=== PATIENT | male | born 1955 | race Caucasian/White ===

== ENCOUNTER 2023-02-10 10:21 | Outpatient (CLI) | payer MEDICARE, SELFPAY | END 2023-02-10 10:22 | disposition home or self-care (01) | PROVIDERS: PCP Family Medicine; Visit Provider Family Medicine | DX: Z00.00 Encounter for general adult medical examination without abnormal findings (principal); I10 Essential (primary) hypertension; E11.9 Type 2 diabetes mellitus without complications; R53.83 Other fatigue; R73.9 Hyperglycemia, unspecified; Z12.5 Encounter for screening for malignant neoplasm of prostate; Z13.6 Encounter for screening for cardiovascular disorders | CPT/HCPCS: 80053; 80061; 84153; 84443 ==

== ENCOUNTER 2023-02-20 13:31 | Outpatient (CLI) | payer MEDICARE, SELFPAY ==
--- NOTE | 2023-02-20 14:00 | CRLHL7_ITS ---
For Patients: As a result of the Century Cures Act, medical imaging exams and procedure reports are released immediately into your electronic medical record. You may view this report before your referring provider. If you have questions, please contact your health care provider. INDICATION: Lung cancer screening. History of smoking. TECHNIQUE: Low-dose lung cancer screening non-contrast CT chest. Dose reduction techniques were used. COMPARISON: Chest x-ray 01/09/2023 FINDINGS: NODULES: Innumerable calcified granulomas in both lungs. LUNGS AND PLEURA: No focal consolidation. No pleural effusions. MEDIASTINUM: Small calcified hilar nodes CARDIOVASCULAR: Normal heart size. Normal caliber thoracic aorta. Scattered vascular calcifications. LIMITED UPPER ABDOMEN: Cholelithiasis. Remainder is unremarkable. MUSCULOSKELETAL: Mild thoracic spondylosis. IMPRESSION: 1. Innumerable calcified granulomas in both lungs. 2. Small calcified hilar nodes. [employer] GUIDELINES - SOLID NODULES: MULTIPLE LOW RISK - nodule less than 6 mm: No routine follow-up. - nodule 6-8 mm: CT at 3-6 months, then consider CT at 18-24 months. - nodule greater than 8 mm: CT at 3-6 months, then consider CT at 18-24 months. MULTIPLE HIGH RISK - nodule less than 6 mm: Optional CT at 12 months. - nodule 6-8 mm: CT at 3-6 months, then at 18-24 months. - nodule greater than 8 mm: CT at 3-6 months, then at 18-24 months. Please note that all CT scans at this facility use dose modulation, iterative reconstruction, and/or weight-based dosing when appropriate to reduce radiation dose to as low as reasonably achievable. Dictated by Brian Rodriguez MD @ 02/24/2023 2:36:10 PM (Electronically Signed)
--- NOTE | 2023-02-20 15:00 | CRLHL7_ITS ---
For Patients: As a result of the Century Cures Act, medical imaging exams and procedure reports are released immediately into your electronic medical record. You may view this report before your referring provider. If you have questions, please contact your health care provider. INDICATION: elevated LFTs COMPARISON: none TECHNIQUE: Real time underwood scale imaging and color Doppler analysis was performed of the right upper quadrant. FINDINGS: The liver is prominent measuring 18.8 cm. The liver echotexture is diffusely echogenic. No intrahepatic mass. There is a normal appearance of the hepatic IVC and proximal abdominal aorta. There is no evidence of ascites. The gallbladder is of normal size and there are small stones within the gallbladder lumen measuring up to 3.6 millimeters. The gallbladder wall measures 2 mm in thickness. The common bile duct is of normal size and measures 5 mm in diameter at the level of the hieu hepatis. The pancreas appears normal. There is no evidence of a stone or hydronephrosis within the right kidney. The right kidney measures 13.0 cm in length. IMPRESSION: Diffuse hepatic steatosis. Cholelithiasis. Dictated by Massimo Little MD @ 02/21/2023 11:29:32 AM (Electronically Signed)
--- NOTE | 2023-02-20 16:00 | CRLHL7_ITS ---
For Patients: As a result of the Cures Act, medical imaging exams and procedure reports are released immediately into your electronic medical record. You may view this report before your referring provider. If you have questions, please contact your health care provider. Examination: US abdominal aorta Indication: Abdominal aortic aneurysm screening. Technique: Boyer scale and color Doppler images of the aorta and common iliac arteries are obtained. Comparison: None Findings: Proximal aorta: 2.2 x 2.2 cm Mid aorta: 2.1 x 2.4 cm Distal aorta: 2.1 x 2.4 cm Right common iliac artery: 1.4 x 1.8 cm Left common iliac artery: 1.3 x 1.6 cm Impression: No abdominal aortic aneurysm. Dictated by Massimo Little MD @ 02/21/2023 11:32:31 AM (Electronically Signed)
== END 2023-02-20 13:32 | disposition home or self-care (01) ==
LOC: CT 13:33
PROVIDERS: PCP Family Medicine; Visit Provider Family Medicine
DX: R79.89 Other specified abnormal findings of blood chemistry (principal); K76.0 Fatty (change of) liver, not elsewhere classified; K80.20 Calculus of gallbladder without cholecystitis without obstruction; Z72.0 Tobacco use; Z87.891 Personal history of nicotine dependence
CPT/HCPCS: 71271; 76705; 76706

== ENCOUNTER 2023-02-27 09:12 | Outpatient (CLI) | payer MEDICARE, SELFPAY | END 2023-02-27 09:13 | disposition home or self-care (01) | LOC: OP CLINIC 09:13 | PROVIDERS: PCP Family Medicine; Visit Provider Internal Medicine | DX: Z53.09 Procedure and treatment not carried out because of other contraindication (principal); I48.20 Chronic atrial fibrillation, unspecified ==

== ENCOUNTER 2023-02-27 10:18 | Emergency (ER) | payer MEDICARE, SELFPAY ==
[2023-02-27] VITALS (25 sets, daily range): BP systolic 108–153; BP diastolic 75–118; PULSE 74–137; RESP 22; TEMP 36.6; O2SAT 95–98
--- NOTE | 2023-02-27 10:37 | CRLHL7_ITS ---
For Patients: As a result of the Century Cures Act, medical imaging exams and procedure reports are released immediately into your electronic medical record. You may view this report before your referring provider. If you have questions, please contact your health care provider. Indication: Atrial fibrillation Technique: Chest 2 views Comparison: Chest x-ray 01/09/2023 Findings/Impression: Cardiovascular and mediastinum: Normal heart size with mildly prominent aortic shadow, similar prior proved Lungs and pleural spaces: No pleural effusion or pneumothorax. Innumerable calcified granulomata, similar to prior. No acute consolidation. Bones and soft tissues: Mild ankylosis thoracic spine. Dictated by Jordan Alex MD @ 02/27/2023 11:04:18 AM (Electronically Signed)
--- NOTE | 2023-02-27 10:40 | ED_ITS ---
HPI - General Adult General Date Seen: 02/27/23 Chief complaint: Arrhythmia/Palpitations Stated complaint: Afib Time Seen by Provider: 02/27/23 10:37 History of Present Illness HPI narrative: Pleasant 67-year-old gentleman presents to the ER today with his . They are sent over from the outpatient colonoscopy department. He had presented to the colonoscopy is department for a routine screening colonoscopy. He had completed his prep unremarkably overnight last night and came in without any unusual symptoms this morning. When they were getting him a cup to the monitors they noted that he had a rapid irregular heart rate. He has atrial fibrillation with RVR. The patient has no symptoms from this. No palpitations. No dizziness. No chest pain. No shortness of breath. No syncope. He does know when it started. He has never had atrial fibrillation or any cardiac arrhythmia before. He has no history of cardiovascular disease or stents or strokes or peripheral artery disease. He does have a past medical history including hypertension (on lisinopril) obesity, and borderline diabetes) on metformin started a couple of weeks ago). He is a smoker but only smokes occasionally. He drinks alcohol rarely, perhaps a couple times per month. No alcohol consumption lately. No drugs or alcohol. He does snore loudly but has never had a sleep apnea test. No diagnosis of COSME. No CPAP. He has not had any other recent symptoms. No personal or family history of AFib. Chads 2 Vasc score equals 2 which puts him at a 2.2 % annual risk for stroke. Related Data Previous Rx's Medication Instructions Recorded blood sugar diagnostic (Blood #100 ea 02/10/23 Glucose Test strips) blood-glucose meter (Advanced #1 ea 02/10/23 Glucose Meter) ketoconazole 2 % shampoo 1 applic topical 2XW #120 mL 02/10/23 lancets 28 gauge (Comfort EZ #100 ea 02/10/23 Lancets) lisinopril 10 1 tab PO QDAY #30 tabs 02/10/23 mg-hydrochlorothiazide 12.5 mg tablet metformin 500 mg tablet,extended 500 mg PO QDAY #90 tabs 02/10/23 release 24hr triamcinolone acetonide 0.1 % 1 applic topical BID #80 grams 02/10/23 topical cream peg 3350-electrolytes 236 240 ml PO ONCE #4,000 mL 02/16/23 gram-22.74 gram-6.74 gram-5.86 gram solution (Golytely) peg 3350-electrolytes 236 240 ml PO ONCE #4,000 mL 02/22/23 gram-22.74 gram-6.74 gram-5.86 gram solution (Golytely) apixaban 5 mg tablet (Eliquis) 5 mg PO BID #60 tabs 02/27/23 diltiazem HCl 240 mg 240 mg PO DAILY #30 caps 02/27/23 capsule,extended release 24 hr (Cardizem CD) Allergies Allergy/AdvReac Type Severity Reaction Status Date / Time No Known Drug Allergies Allergy Verified 02/10/23 10:04 [facility] Medical History (Updated 02/27/23 @ 13:31 by Derrek Hu MD) Tobacco abuse ?Z72.0 - Tobacco use (ICD-10) Seborrheic dermatitis, unspecified ?L21.9 - Seborrheic dermatitis, unspecified (ICD-10) Diabetes mellitus ?E11.9 - Type 2 diabetes mellitus without complications (ICD-10) Knee pain, bilateral ?M25.561 - Pain in right knee (ICD-10) ?M25.562 - Pain in left knee (ICD-10) HTN, goal below 140/90 ?I10 - Essential (primary) hypertension (ICD-10) Preventative health care ?Z00.00 - Encounter for general adult medical examination without abnormal findings (ICD-10) Dyspnea or other respiratory complaints Surgical History (Updated 02/15/23 @ 15:06 by Sonia Gomez) Injury of quadriceps tendon (07/06/17) ?S76.109A - Unspecified injury of unspecified quadriceps muscle, fascia and tendon, initial encounter (ICD-10) S/P right knee arthroscopy (01/05/18) ?Z98.890 - Other specified postprocedural states (ICD-10) Social History Smoking Status: Light tobacco smoker What tobacco products do you use: cigarettes Do you use any of these nicotine containing products: None Second hand tobacco smoke exposure: No How often do you have a drink containing alcohol: 2-4 times a month How many standard drinks containing alcohol do you have on a typical day: 1 or 2 How often do you have six or more drinks on one occasion: Never AUDIT-C Alcohol total score: 2 Non-prescribed substance use: denies use Little interest or pleasure in doing things: not at all Feeling down, depressed, or hopeless: not at all service: No Exam Narrative: Exam Narrative: Constitutional: Appears well-developed and well-nourished. Alert. Conversant. Non toxic. HENT: Head: Atraumatic. Nose: Nose normal. Mouth/Throat: Oral mucosa is clear and moist. no trismus. Pharynx normal. Tonsil s symmetric. No tonsillar enlargement, erythema, or exudate. Eyes: Conjunctivae normal. EOM normal. Pupils equal, round, and reactive to light. No scleral icterus. Neck: Normal range of motion. Neck supple. No tracheal deviation present. Cardiovascular: Tachycardic, irregularly irregular rhythm. No gallop. No friction rub. No murmur heard. Symmetric radial artery pulses . No JVD. Pulmonary/Chest: Effort normal. No stridor. No respiratory distress. No wheezes. No rales. No rhonchi . No tenderness. Abdominal: Soft. Bowel sounds normal. No distension. No mass. No tenderness. No rebound. No guarding. Musculoskeletal: RUE: Normal range of motion. No tenderness. No deformity LUE: Normal range of motion. No tenderness. No deformity RLE: Normal range of motion. No edema. No tenderness. No deformity LLE: Normal range of motion. No edema. No tenderness. No deformity Neurological: Alert and oriented to person, place, and time. Normal strength. CN II-VII intact. No sensory deficit. GCS eye subscore is 4. GCS verbal subscore is 5. GCS motor subscore is 6. Normal coordination Skin: Skin is warm and dry. No rash noted. No pallor. Normal capillary refill. Psychiatric: Normal mood. Normal affect. Const: Vital Signs, click to edit/add: Vital Signs - 24 hr 02/27/23 10:24 02/27/23 10:42 02/27/23 11:06 Temperature 97.8 F Pulse Rate 108 H 90 Pulse Rate [Apical ] 137 H Respiratory Rate 22 Blood Pressure Blood Pressure [Le ft Upper Arm] 110/92 H Pulse Oximetry 95 96 95 Oxygen Delivery Me thod Room Air 02/27/23 11:07 02/27/23 11:15 02/27/23 11:30 Temperature Pulse Rate 93 92 82 Pulse Rate [Apical ] Respiratory Rate Blood Pressure 135/95 H Blood Pressure [Le ft Upper Arm] Pulse Oximetry 97 96 97 Oxygen Delivery Me thod 02/27/23 11:32 02/27/23 11:45 02/27/23 12:00 Temperature Pulse Rate 80 86 86 Pulse Rate [Apical ] Respiratory Rate Blood Pressure 120/93 H Blood Pressure [Le ft Upper Arm] Pulse Oximetry 95 96 98 Oxygen Delivery Me thod 02/27/23 12:02 02/27/23 12:15 02/27/23 12:30 Temperature Pulse Rate 92 77 84 Pulse Rate [Apical ] Respiratory Rate Blood Pressure 148/114 H Blood Pressure [Le ft Upper Arm] Pulse Oximetry 97 97 97 Oxygen Delivery Me thod 02/27/23 12:32 02/27/23 12:45 02/27/23 13:00 Temperature Pulse Rate 86 76 93 Pulse Rate [Apical ] Respiratory Rate Blood Pressure 108/75 Blood Pressure [Le ft Upper Arm] Pulse Oximetry 96 97 97 Oxygen Delivery Me thod 02/27/23 13:02 02/27/23 13:15 02/27/23 13:30 Temperature Pulse Rate 80 87 84 Pulse Rate [Apical ] Respiratory Rate Blood Pressure 129/100 H Blood Pressure [Le ft Upper Arm] Pulse Oximetry 95 97 97 Oxygen Delivery Me thod 02/27/23 13:32 02/27/23 13:45 02/27/23 14:00 Temperature Pulse Rate 74 86 89 Pulse Rate [Apical ] Respiratory Rate Blood Pressure 129/100 H Blood Pressure [Le ft Upper Arm] Pulse Oximetry 96 97 95 Oxygen Delivery Me thod 02/27/23 14:03 02/27/23 14:15 02/27/23 14:30 Temperature Pulse Rate 90 82 92 Pulse Rate [Apical ] Respiratory Rate Blood Pressure 145/118 H Blood Pressure [Le ft Upper Arm] Pulse Oximetry 95 96 95 Oxygen Delivery Me thod 02/27/23 14:32 Temperature Pulse Rate 95 Pulse Rate [Apical ] Respiratory Rate Blood Pressure 153/110 H Blood Pressure [Le ft Upper Arm] Pulse Oximetry 95 Oxygen Delivery Me thod Course Vital Signs Vital signs: Initial Vital Signs Temperature 97.8 F 02/27/23 10:24 Temperature Source Temporal Artery Scan 02/27/23 10:24 Pulse Rate 137 H 02/27/23 10:24 Pulse Rhythm Irregular 02/27/23 10:24 Respiratory Rate 22 02/27/23 10:24 Blood Pressure 110/92 H 02/27/23 10:24 Blood Pressure Mean 98 02/27/23 10:24 Blood Pressure Position Supine 02/27/23 10:24 Pulse Oximetry 95 02/27/23 10:24 Oxygen Delivery Method Room Air 02/27/23 10:24 Vital Signs Temperature 97.8 F 02/27/23 10:24 Pulse Rate 137 H 02/27/23 10:24 Respiratory Rate 22 02/27/23 10:24 Blood Pressure 110/92 H 02/27/23 10:24 Pulse Oximetry 95 02/27/23 10:24 Oxygen Delivery Method Room Air 02/27/23 10:24 Temperature 97.8 F 02/27/23 10:24 Pulse Rate 95 02/27/23 14:32 Respiratory Rate 22 02/27/23 10:24 Blood Pressure 153/110 H 02/27/23 14:32 Pulse Oximetry 95 02/27/23 14:32 Oxygen Delivery Method Room Air 02/27/23 10:24 Medications Administered Medications: Discontinued Medications Generic Name Dose Route Start Last Admin Trade Name Freq PRN Reason Stop Dose Admin Apixaban 5 mg 02/27/23 12:27 02/27/23 13:00 Apixaban 5 Mg Tablet PO 02/27/23 12:28 5 mg ONCE ONE Administration Diltiazem HCl 10 mg 02/27/23 10:37 02/27/23 11:07 Diltiazem 5 Mg/Ml Inj IVP 02/27/23 10:38 10 mg ONCE ONE Administration Diltiazem HCl 10 mg 02/27/23 11:54 02/27/23 12:24 Diltiazem 5 Mg/Ml Inj IVP 02/27/23 11:55 10 mg ONCE ONE Administration Diltiazem HCl 120 mg 02/27/23 11:55 02/27/23 12:05 Diltiazem 120 Mg Cap.Er.24h PO 02/27/23 11:56 120 mg ONCE ONE Administration Diltiazem HCl 120 mg 02/27/23 13:23 02/27/23 13:37 Diltiazem 120 Mg Cap.Er.24h PO 02/27/23 13:24 120 mg ONCE ONE Administration Sodium Chloride 500 mls @ 500 mls/hr 02/27/23 10:37 02/27/23 12:00 0.9 % Sodium Chloride 500 Ml IV 02/27/23 11:36 Infused .Q1H ONE Infusion Medical Decision Making MDM Narrative Medical decision making narrative: Very pleasant 67-year-old gentleman who was referred to the ER today from the outpatient colonoscopy suite for atrial fibrillation with RVR. He has no history of AFib and is not having any symptoms of AFib but was found to be in AFib with RVR when he presented this morning per his routine outpatient colonoscopy. AFib with RVR confirmed on ER 12 lead EKG and electronic device monitor. Fortunately patient's blood pressure is stable and he is asymptomatic. It knee absence of symptoms, impossible to know true time of onset. Therefore sedation and cardioversion here in the ER is contraindicated due to risk up stroke. We opted for rate control. We administered IV fluids and IV diltiazem. After 1st 10 mg bolus he had some partial improvement. A 2nd bolus of 10 mg diltiazem and 120 mg Cardizem CD were also administered for rate control. Cause of the AFib is unclear. No recent drug or alcohol use. No ?holiday heart? syndrome. Electrolytes are normal. No evidence for ACS. Thyroid and TSH normal. Patient does have a history of snoring I wonder if he may have sleep apnea as a cause. In terms of stroke prophylaxis his CHADS2 Vasc score is 2 which puts him at a 2.2 % annual risk for stroke. Patient has had no high risk features for bleeding complications and no history of GI bleed or ulcer. Heart rate improved after 10 mg of IV diltiazem. It was not ranging in the 100- 120 range. He received 100 mg of Cardizem CD an additional 10 mg IV. Heart rate improved further with ranging 80 up to 120. Additional Cardizem CD 1 120 mg oral administered. Heart rate maintaining in the 80s to 115 range. He still remains asymptomatic Discussed with Cardiology, Dr. Collins. He agrees with the plan to initiate Eliquis for stroke prophylaxis. He would recommend Cardizem CD 2 140 mg daily for rate control. Outpatient follow-up with primary care to arrange echocardiogram, Holter monitor for outpatient, and then outpatient cardiology visit. I discussed atrial fibrillation with the patient and his in detail. Discussed the rationale for his medications and indications for each. Discussed the potential risks of AFib with RVR and potential complications that could occur at home. Precautions for return to the ER reviewed. Questions answered in detail for the patient, his , and his son. Lab Data Labs: Lab Results 02/27/23 Range/Units 11:15 WBC 6.48 (4.50-11.00) K/uL RBC 5.36 (4.30-5.90) m/uL Hgb 16.3 (13.5-17.5) gm/dL Hct 47.6 (37.0-53.0) % MCV 89 (80-100) fL MCH 30 (26-34) pg MCHC 34 (32-36) gm/dL RDW Coeff of Luis 12.0 (11.5-15.5) % Plt Count 184 (140-440) K/uL Neut % (Auto) 64.0 (42.0-72.0) % Lymph % (Auto) 22.4 (20-44) % Edwards % (Auto) 10.8 (0.0-11.0) % Eos % (Auto) 1.7 (0.0-7.0) % Baso % (Auto) 0.8 (0.0-3.0) % Neut # (Auto) 4.15 (1.7-7.0) K/uL Lymph # (Auto) 1.45 (0.90-2.90) K/uL Edwards # (Auto) 0.70 (0.00-0.90) K/UL Eos # (Auto) 0.11 (0.00-0.50) K/uL Baso # (Auto) 0.05 (0.00-0.30) K/uL Abs Immat Gran (auto) 0.02 (0.00-0.30) K/uL Imm/Tot Granulo (auto) 0.3 % INR 1.05 (0.91-1.10) Sodium 139 (135-149) mmol/L Potassium 3.9 (3.6-5.1) mmol/L Chloride 102 (96-114) mmol/L Carbon Dioxide 27 (20-32) mmol/L Anion Gap 10 (7-15) mEq/L BUN 17 (7-30) mg/dL Creatinine 1.0 (0.5-1.5) mg/dL Estimated GFR 83 ml/min Glucose 131 H (60-115) mg/dL Calcium 9.4 (8.4-10.6) mg/dL Troponin I < 0.01 L (0.01-0.04) ng/mL TSH 1.120 (0.270-4.200) uIU/mL SARS-CoV-2 (PCR) Negative SARS-CoV-2 (Negative) Influenza Type A (PCR) Negative PCR FLU A (Negative) Influenza Type B (PCR) Negative PCR FLU B (Negative) RSV (PCR) Negative PCR RSV (Negative) Imaging Data Chest x-ray: Attestation: I have reviewed the pertinent imaging results. Radiologist's impression: Findings/Impression: Cardiovascular and mediastinum: Normal heart size with mildly prominent aortic shadow, similar prior proved Lungs and pleural spaces: No pleural effusion or pneumothorax. Innumerable calcified granulomata, similar to prior. No acute consolidation. ECG Data Attestation: I personally reviewed and interpreted this ECG as follows: Interpretation: Atrial fibrillation with rapid ventricular response. Rate 137. W[place] Na QRS axis normal axis ST segment/T wave: No ST segment elevation or depression. Nonspecific changes in the lateral leads. QTc: 380 Discharge Plan Discharge Clinical Impression: Atrial fibrillation with rapid ventricular response Patient Disposition: Home, Self-Care Condition: Stable Instructions: A-fib (Atrial Fibrillation) (ED), Blood Thinners (ED) Additional Instructions: As we discussed, please come back to the ER right away if you have any spells of dizziness, palpitations, lightheadedness, chest pain, or trouble breathing. Come back to the ER right away if you have a heart rate elevated above 110 for more than he 5 minutes. Please follow-up with your regular doctor within the next 2-4 days for a recheck. Your doctor can help you arrange and at home electronic device monitor that he will wear for several days at home, and outpatient cardiac ultrasound (called an echocardiogram). He will also need to follow-up with the instructor physical. You can call [facility] at [phone] to schedule an ER follow-up appointment for your atrial fibrillation. To help keep your heart rate under control please start your new medication- Cardizem CD 2 140 mg daily To minimize your risk for strokes, please start the new medication-Eliquis 5 mg by mouth twice daily. Prescriptions: New diltiazem HCl [Cardizem CD] 240 mg capsule,extended release 24hr 240 mg PO DAILY Qty: 30 2RF Eliquis 5 mg tablet 5 mg PO BID Qty: 60 2RF No Action metformin 500 mg tablet extended release 24hr 500 mg PO QDAY Qty: 90 1RF (DME) blood-glucose meter [Advanced Glucose Meter] [facility] See Rx Instructions .Route Qty: 1 0RF Rx Instructions: As directed (DME) Blood Glucose Test Strip See Rx Instructions .ROUTE .MEDSUPPLY Qty: 100 2RF Rx Instructions: bid (DME) lancets [Comfort EZ Lancets] [facility] See Rx Instructions .Route Qty: 100 12RF Rx Instructions: bid lisinopril-hydrochlorothiazide 10-12.5 mg tablet 1 tab PO QDAY Qty: 30 1RF triamcinolone acetonide 0.1 % cream 1 applic topical BID Qty: 80 1RF ketoconazole 2 % shampoo 1 applic topical 2XW Qty: 120 1RF peg 3350-electrolytes [Golytely] 236-22.74-6.74 -5.86 gram recon soln 240 ml PO ONCE Qty: 4000 0RF Rx Instructions: 4pm day prior to procedure. Drink 8oz glass every 15 minutes until 1/2 of solution is gone. 6 hours prior to procedure drink 8 oz glass every 15 minutes until remaining solution gone. peg 3350-electrolytes [Golytely] 236-22.74-6.74 -5.86 gram recon soln 240 ml PO ONCE Qty: 4000 0RF Rx Instructions: 4pm day prior to procedure. Drink 8oz glass every 15 minutes until 1/2 of solution is gone. 6 hours prior to your procedure time drink 8oz glass every 15 minutes until remaining solution is gone. Follow Up/Referrals: Earnest Wyatt MD [Primary Care Provider] - [facility]
[2023-02-27] MEDS: 0.9 % SODIUM CHLORIDE 500 ML 500 ML IV (11:00)
[2023-02-27] MEDS: dilTIAZem 5 MG/ML inj 10 MG IVP ×2 (11:07→12:24)
[2023-02-27 11:26] LABS: Basophils Absolute Auto 0.05 K/uL (0.00-0.30); Basophils Percent Auto 0.8 % (0.0-3.0); Eosinophils Absolute Auto 0.11 K/uL (0.00-0.50); Eosinophils Percent Auto 1.7 % (0.0-7.0); Hematocrit 47.6 % (37.0-53.0); Hemoglobin* 16.3 gm/dL (13.5-17.5); Immature Granulocytes Abs Auto 0.02 K/uL (0.00-0.30); Immature Granulocytes Pct Auto 0.3 %; Lymphocytes Absolute Auto 1.45 K/uL (0.90-2.90); Lymphocytes Percent Auto 22.4 % (20-44); Mean Corpuscular HGB Conc 34 gm/dL (32-36); Mean Corpuscular Hemoglobin 30 pg (26-34); Mean Corpuscular Volume 89 fL (80-100); Monocytes Percent Auto 10.8 % (0.0-11.0); Neutrophils Absolute Auto 4.15 K/uL (1.7-7.0); Platelet Count* 184 K/uL (140-440); Red Blood Count 5.36 m/uL (4.30-5.90); Slide Review Reflex No; White Blood Count* 6.48 K/uL (4.50-11.00)
[2023-02-27 11:38] LABS: Chloride* 102 mmol/L (96-114); Sodium* 139 mmol/L (135-149)
[2023-02-27 11:39] LABS: Potassium* 3.9 mmol/L (3.6-5.1)
[2023-02-27 11:41] LABS: Anion Gap 10 mEq/L (7-15); Carbon Dioxide* 27 mmol/L (20-32); Estimated Glomerular Filt Rate 83 ml/min
[2023-02-27 11:42] LABS: Blood Urea Nitrogen* 17 mg/dL (7-30); Calcium* 9.4 mg/dL (8.4-10.6); Glucose* 131 mg/dL (60-115)
[2023-02-27 11:46] LABS: INR 1.05 (0.91-1.10); Prothrombin Time 14.3 Seconds
[2023-02-27 11:56] LABS: Troponin I* < 0.01 ng/mL (0.01-0.04)
[2023-02-27] MEDS: dilTIAZem 120 MG CAP.ER.24H PO ×2 (12:05→13:37)
[2023-02-27 12:08] LABS: PCR FLU A Negative PCR FLU A (Negative); PCR FLU B Negative PCR FLU B (Negative); PCR RSV Negative PCR RSV (Negative)
[2023-02-27 12:16] LABS: SARS PCR* Negative SARS-CoV-2 (Negative)
[2023-02-27] MEDS: APIXABAN 5 MG TABLET PO (13:00)
--- NOTE | 2023-02-27 14:19 | ED.NURSE ---
dr pérez aware of hr 94-124. does want to go home.
== END 2023-02-27 14:52 | disposition home or self-care (01) ==
PROVIDERS: Emergency Provider Emergency Medicine; PCP Family Medicine
DX: I48.20 Chronic atrial fibrillation, unspecified (principal)
CPT/HCPCS: 36415; 71046; 80048; 84443; 84484; 85025; 85610; 87631; 93005; 99284; A9270; J7120

== ENCOUNTER 2023-04-14 07:31 | Outpatient (CLI) | payer OTHER, SELFPAY ==
[2023-04-14] MEDS: PERFLUTREN LIPID MICROSPHERES 2 ML VIAL IV (09:53)
== END 2023-04-14 07:32 | disposition home or self-care (01) ==
LOC: RAD 07:31
PROVIDERS: PCP Family Medicine; Visit Provider Family Medicine
DX: I48.91 Unspecified atrial fibrillation (principal); I51.7 Cardiomegaly; I34.0 Nonrheumatic mitral (valve) insufficiency; I10 Essential (primary) hypertension
CPT/HCPCS: 93306; Q9957

== ENCOUNTER 2023-04-24 19:09 | Outpatient (CLI) | payer OTHER, SELFPAY ==
--- OUTSIDE RECORDS SUMMARY | 2023-04-24 19:15 | XMS_ITS | Clinical Summary ---
Author Name Unknown Organization [facility] Address [address] [address] Care Team Providers Care Electrician Ship Name Role Phone Found, No Pcp MD Primary Care Provider Unavailab le Source Comments You are receiving this document as you are listed as the primary care provider,follow-up provider, or the patient has been referred to you for consultation.This is in compliance with the Medicare andMedicaid EHR Incentive Program,which states Providers who transition their patient to another setting of careor provider of care or refers their patient to another provider of care shouldprovide summary care record for each transition of care or referral. [facility] Allergies No known active allergies Medications No known medications Active Problems No known active problems Social History Tobacco Use Types Packs/Day Years Used Date Smoking Tobacco: Every Day Alcohol Use Standard Drinks/Week Comments Yes 0 (1 standard drink = 0.6 oz pur e alcohol) Sex and Gender Information Value Date Recorded Sex Assigned at Not on file Gender Identity Not on file Sexual Orientation Not on file Last Filed Vital Signs Vital Sign Reading Time Taken Comments Blood Pressure 162/102 05/27/2014 2:05 PM CARDIOLOGY ASSOCIATE Pulse - - Temperature 36.8 ??C (98.2 ??F) 02/04/2016 8:32 AM CD T Respiratory Rate - - Oxygen Saturation - - Inhaled Oxygen Concentration - - Weight 133.4 kg (294 lb) 05/27/2014 2:05 PM CARDIOLOGY ASSOCIATE Height 180.3 cm (5' 11) 05/27/2014 2:05 PM CARDIOLOGY ASSOCIATE Body Mass Index 41 05/27/2014 2:05 PM CARDIOLOGY ASSOCIATE Plan of Treatment Health Maintenance Due Date Last Done Comments Colon Cancer Screening Plan Due 1955 Hep C Screening (Preventive Services) 1955 PSA Screening Discussion 1955 COVID-19 Vaccine (#1) 05/08/1956 Adult Preventive Visit 1974 DTaP/Tdap/Td (1 - Tdap) 11/06/1975 Cholesterol 11/06/1991 Zoster/Shingles (1 of 2) 2006 Pneumococcal 65+ Yrs (1 - PCV) 2021 Influenza (#1) 2022 HepA Aged Out No longer eligi ble based on patient's age to complete this topic HepB Aged Out No longer eligi ble based on patient's age to complete this topic Hib Aged Out No longer eligi ble based on patient's age to complete this topic IPV (Polio) Aged Out No longer eligi ble based on patient's age to complete this topic MCV4 Aged Out No longer eligi ble based on patient's age to complete this topic Care Teams Electrician Ship Relationship Specialty Start Date End Date Found, No Pcp, [id number] [place] [address] PCP - General 03/01/18
--- NOTE | 2023-05-02 09:12 | W.PM.SLEEP ---
Sleep Study Details Details Interpreting Provider: Yulisa Date of Sleep Study: 04/24/23 Sleep Study Details: STUDY TYPE:? Home unattended ? BMI:? 39.3 ORDERING PROVIDER:? Edmundo INDICATION:? Concerns about sleep apnea ? SLEEP SUMMARY:? 611.3 minutes RESPIRATORY SUMMARY:? AHI 24.6 Low oxygen 75 2.1% of study oxygen less than 90% Snoring 25.7% PERIODIC LIMB MOVEMENTS OF SLEEP:? Not recorded during home study CARDIAC:? Range 52-106, mean 83.3 IMPRESSION:? Moderate obstructive sleep apnea treatment options include CPAP, dental appliance, weight loss and/or airway expansion surgery. Would favor CPAP. RECOMMENDATION: Home unattended
== END 2023-04-24 19:10 | disposition home or self-care (01) ==
PROVIDERS: PCP Family Medicine; Visit Provider Family Medicine
DX: G47.33 Obstructive sleep apnea (adult) (pediatric) (principal)
CPT/HCPCS: 95806

== ENCOUNTER 2023-05-09 07:58 | Outpatient (CLI) | payer OTHER, SELFPAY ==
--- OUTSIDE RECORDS SUMMARY | 2023-05-10 05:37 | XMS_ITS | Clinical Summary ---
Author Name Unknown Organization [facility] Address [place], [place] [address] Care Team Providers Care Director Of Instrumental Music Name Role Phone Earnest Wyatt MD Primary Care Provider [phone] Allergies No known active allergies Medications Medication Sig Dispensed Refills Start Date End Date Status albuterol HFA (PRO-AIR; VENTOLIN; PROVENTIL) 90 mcg/actuation inhaler Inhale 2 Puffs by mouth every 4 hours if needed. 0 01/09/2023 Active Eliquis 5 mg tablet Take 5 mg by mouth two times daily. 0 02/27/2023 Active dilTIAZem CD (CARDIZEM CD) 240 mg extended release 24 hr capsule Take 240 mg by mouth once daily. 0 04/03/2023 Active lisinopril-hydroch lorothiazide (10-12.5 mg) tablet (PRINZIDE; ZESTORETIC) Take 1 Tablet by mouth once daily. 0 03/17/2023 Active metFORMIN (GLUCOPHAGE XR) 500 mg Extended-Release tablet Take 500 mg by mouth once daily with evening meal. 0 02/10/2023 Active rosuvastatin (CRESTOR) 10 mg tablet Take 10 mg by mouth once daily with evening meal. 0 03/09/2023 Active Ozempic 0.25 mg or 0.5 mg (2 mg/3 mL) pen INJECT 0.25 MG (0.368 ML) SUBCUTANEOUSLY EVERY WEEK FOR 4 WEEKS* 0 04/13/2023 Active Accu-Chek Guide test strips strip USE TO TEST TWICE DAILY* 0 02/10/2023 Active Accu-Chek Guide Glucose Meter Use as directed.* 0 02/10/2023 Acti ve Accu-Chek Softclix Lancets USE DIRECTED TO TEST TWICE DAILY* 0 02/10/2023 Active Encounters Date Type Department Care Team Description 04/27/2023 9:01 AM COMMERCIAL FISHING VESSEL OPERATOR Anesthesia Event [facility] [address] [place] [address] Amarjit Edmondson MD 04/27/2023 7:07 AM COMMERCIAL FISHING VESSEL OPERATOR - 04/27/2023 10:15 AM COMMERCIAL FISHING VESSEL OPERATOR Hospital Encounter [facility] [address] [place] [address] Rocael Baker MD Discharge Disposition: Home Self Care 04/27/2023 Travel 04/25/[address] [phone] Rocael Baker MD prior auth for cardioversion 04/21/2023 9:30 AM COMMERCIAL FISHING VESSEL OPERATOR Office Visit [address] [address] Rocael Baker MD 04/21/[address] [address] Rocael Baker MD orders 04/14/2023 8:00 AM COMMERCIAL FISHING VESSEL OPERATOR Ancillary Procedure [facility] [place] [place] [address] [place] [address] 04/14/2023 Travel from Last 3 Months Social History Tobacco Use Types Packs/Day Years Used Date Smoking Tobacco: Some Days Cigarettes Smokeless Tobacco: Never Tobacco Cessation:Ready to Q uit: Not Asked; Counseling Given: Not Answered Comments:Cigar during golf Alcohol Use Standard Drinks/Week Comments Not Currently 0 (1 standard drink = 0.6 oz pur e alcohol) Social Connections Answer Date Recorded Frequency of Communication with Friends and Fami ly Not on file 04/21/2023 Sex and Gender Information Value Date Recorded Sex Assigned at Not on file Gender Identity Not on file Sexual Orientation Not on file Obstetrics History Last Filed Vital Signs Vital Sign Reading Time Taken Comments Blood Pressure 112/64 04/27/2023 10:15 AM COMMERCIAL FISHING VESSEL OPERATOR Pulse 80 04/27/2023 10:15 AM COMMERCIAL FISHING VESSEL OPERATOR Temperature 36.7 ??C (98 ??F) 04/27/2023 10:15 AM COMMERCIAL FISHING VESSEL OPERATOR Respiratory Rate 18 04/27/2023 10:15 AM COMMERCIAL FISHING VESSEL OPERATOR Oxygen Saturation 98% 04/27/2023 10:15 AM COMMERCIAL FISHING VESSEL OPERATOR Inhaled Oxygen Concentration - - Weight 127.5 kg (281 lb) 04/27/2023 7:44 AM COMMERCIAL FISHING VESSEL OPERATOR Height 180.3 cm (5' 11) 04/27/2023 7:44 AM COMMERCIAL FISHING VESSEL OPERATOR Body Mass Index 39.19 04/27/2023 7:44 AM COMMERCIAL FISHING VESSEL OPERATOR Plan of Treatment Health Maintenance Due Date Last Done Comments Pneumococcal series for age 65+ (1 of 2 - PCV) 1962 Tdap 11/06/1967 Depression screening for age 12+ 1968 BMI (ht and wt on same day) for age 18+ 1974 Hepatitis C screening for age 18-79 1974 Tetanus booster 1976 Colonoscopy through age 75 2001 Lipids for age 45-75 2001 Zoster (shingles) series for age 50+ (1 of 2) 2006 AAA screening age 65-74 2021 Medicare Wellness for age 65+ 2021 COVID-19 vaccine series (2022- season) 2022 04/20/2021, 07/17/2020, 06/19/2020 Influenza for age 65+ 12/02/2022 Procedures Procedure Name Priority Date/Time Associated Diagnosis Comments EP CARDIOVERSION Routine 04/27/2023 9:04 AM COMMERCIAL FISHING VESSEL OPERATOR EKG 12 LEAD Post Op 04/27/2023 8:55 AM COMMERCIAL FISHING VESSEL OPERATOR POTASSIUM,ISTAT Timed 04/27/2023 7:39 AM COMMERCIAL FISHING VESSEL OPERATOR EKG 12 LEAD Preop 04/27/2023 7:26 AM COMMERCIAL FISHING VESSEL OPERATOR SCAN-CARDIAC STRIP 04/27/2023 12 :00 AM COMMERCIAL FISHING VESSEL OPERATOR ECHO TTE COMPLETE W CONTRAST Routine 04/14/2023 9:17 AM COMMERCIAL FISHING VESSEL OPERATOR Atrial fibrillation, unspecified type (HC) from Last 3 Months Results * EP CARDIOVERSION (04/27/2023 9:04 AM COMMERCIAL FISHING VESSEL OPERATOR) Anatomical Region Laterality Modality X-Ray Angiograph y Narrative 04/27/2023 9:[address] Bernal PA ? 04/27/2023 ??9:04 AM [facility] Cardiac Electrophysiology Procedure Note DOS: 04/27/2023 Brief History: ??Saleem Thomas is a pleasant 67 y.o. year old with history of persistent atrial fibrillation who now presents to CVOP NPO since midnight for direct current cardioversion. ?? Eliquis 5 mg BID with no missed doses for at least 3 consecutive weeks. ?? Procedure Description: ??Time out was called. ??Brief general anesthesia by anesthesia service. ??Cardioversion patches were placed in an anterior/posterior position. ??One 200 joules synchronized shock delivered with successful conversion to sinus rhythm at 88 bpm. ?? Complications: ??No acute complications. ?? Plan: ?? Saleem Thomas is now recovering from sedation and would anticipate discharge home later today. Dr. Hermosillo was readily available to provide assistance and direction throughout the time services were performed ANSLEY Nichole [facility] Cardiac Electrophysiology Rocael Baker MD CV IMAGING * EKG (04/27/2023 8:55 AM COMMERCIAL FISHING VESSEL OPERATOR) Only the most recent of2 resultswithin the time period is included. Interpretation Sinus rhythm with 1st degree A-V block Otherwise normal ECG When compared with ECG of 27-APR-2023 07:26, Sinus rhythm has replaced Atrial fibrillation BEYOND NOW Ventricular Rate 88 BPM BEYOND NOW Atrial Rate 88 BPM BEYOND NOW P-R Interval 214 ms BEYOND NOW QRS Duration 92 ms BEYOND NOW QT 380 ms BEYOND NOW QTc 459 ms BEYOND NOW P [place] 27 degrees BEYOND NOW R [place] 19 degrees BEYOND NOW T [place] 31 degrees BEYOND NOW 04/27/2023 8:55 AM COMMERCIAL FISHING VESSEL OPERATOR 04/28/2023 8:16 AM COMMERCIAL FISHING VESSEL OPERATOR Narrative BEYOND NOW - 04/28/2023 8:16 AM COMMERCIAL FISHING VESSEL OPERATOR Test Indication: post Court PANCHAL EKG ORD BEYOND NOW [place], [place] * POTASSIUM,ISTAT (04/27/2023 7:39 AM COMMERCIAL FISHING VESSEL OPERATOR) POTASSIUM, POCT 3.9 3.5 - 5.0 mmol/L 05/01/2023 2:57 AM COMMERCIAL FISHING VESSEL OPERATOR [facility] Blood BLOOD SPECIMEN / Unknown 04/27/2023 7:39 AM COMMERCIAL FISHING VESSEL OPERATOR 05/01/2023 2:57 AM COMMERCIAL FISHING VESSEL OPERATOR Rocael Baker MD CHEMISTRY [facility] [address] [place] [address], * SCAN-CARDIAC STRIP (04/27/2023 12:00 AM COMMERCIAL FISHING VESSEL OPERATOR) Narrative 04/27/2023 12:00 AM COMMERCIAL FISHING VESSEL OPERATOR Ordered by an unspecified provider. Other Clinical Staff OTHER * ECHO TTE COMPLETE W CONTRAST (04/14/2023 9:17 AM COMMERCIAL FISHING VESSEL OPERATOR) AORTIC VALVE MEAN PG 3 mmHg PEAK TR VELOCITY 2.1 m/s LVEDD 5.0 cm EJECTION FRACTION 60 - 65% Anatomical Region Laterality Modality Ultrasound 04/14/2023 8:12 AM COMMERCIAL FISHING VESSEL OPERATOR Narrative 04/14/2023 11:28 AM COMMERCIAL FISHING VESSEL OPERATOR ECHOCARDIOGRAM SALEEM THOMAS ?Accession#: ?? [id number] : ?1955 67 years Study Date: ?? 04/14/2023 8:12:21 AM Gender: M ? BP: ? 130/83 mmHg Height: 180.00 cm ? BSA: ?2.44 m? ? ? Weight: 128.00 kg ? Tech: ? MTS ?Referring MD: EARNEST WYATT Site: ? [facility] Reading Location: MOBILE OP Patient Location: Outpatient. Procedure: Color Doppler, Spectral Doppler and 2D w/ Contrast. Indication for study: Atrial fibrillation, unspecified type (HC) Cardiac Rhythm: Irregular.Study quality: Technically limited. Imaging limitations: This study was subject to imaging limitations due to body habitus and a prominent lung artifact. Final Impressions: 1. Technically limited exam. 2. Echo contrast was administered to enhance visualization of all left ventricular segments. 3. Normal LV size, borderline wall thickness, normal global systolic function with an estimated EF of 60 - 65%. 4. Right ventricular cavity size is normal, global systolic RV function is normal. 5. Mildly enlarged left atrium. 6. The mitral valve is normal, mild mitral regurgitation. Chamber Sizes and Function Normal left ventricular size, borderline wall thickness, normal global systolic function with an estimated EF of 60 - 65%. Left atrial size is mildly enlarged. Right ventricular cavity size is normal, global systolic RV function is normal. The right atrium is mildly enlarged. Right atrial volume index is 36 ml/m? ? ?. Right atrial area is 26 cm? ? ?. The pulmonary artery is of normal size and origin. The sinus of Valsalva is normal sized. The ascending aorta is normal sized. Valves, RV Pressures and Diastolic Function The aortic valve is trileaflet, no stenosis and no regurgitation. The mitral valve is normal in structure, mild mitral regurgitation. Indeterminate pattern of LV diastolic filling. The tricuspid valve is normal in structure. Tricuspid regurgitation is trace regurgitation. The tricuspid regurgitant velocity is 2.1 m/s, the estimated right ventricular systolic pressure is 18 mmHg plus right atrial pressure. The pulmonic valve is normal. Trace pulmonary regurgitation. Masses, Effusion, Shunts There is no pericardial effusion. The inferior vena cava is normal sized, respiratory size variation greater than 50%. Interatrial septum is not well visualized. MEASUREMENTS AND CALCULATIONS 2-D Measurements and LV Function: LVID (d) 5.0 cm LV FS% (2D) ?? 29 % LVID (s) 3.6 cm LVOT diameter 2.4 cm IVS (d) ??1.2 cm HR ?110 bpm LVPW (d) 1.1 cm LA Vol index ??33 ml/m2 Ao Sinus 3.5 cm RA Vol index ??36 ml/m2 Asc Ao ?? 3.9 cm RA area ? 26 cm? ? ? LA ? 5.1 cm RV Max 4C (d) 3.5 cm Aortic Valve: Vmax ? 1.2 m/s ??KASIA (V) ?? 2.79 cm? ? ? VTI ?0.20 m ?? KASIA (I) ?? 2.54 cm? ? ? LVOT V max 0.8 m/s ??Max PG ?6 mmHg LVOT VTI ?? 0.11 m ?? Mean PG ?? 3 mmHg SV ? 51 ml ?Dim Index 0.57 SV index ?? 21 ml/m? ? ? CO ?5.6 l/min ?CI ?2.3 l/min/m? ? ? Tricuspid Valve and estimated PA pressures: TR Vmax 2.1 m/s TAPSE 1.6 cm TR maxG 18 mmHg Contrast documentation: 2 ml diluted Definity, lot #[id number], [facility]# [id number] was administered peripherally to enhance visualization of all left ventricular segments. . This study was interpreted by an [facility] accredited facility. CC: HIM ([facility]) [facility]. ??Final ?? Procedure Note Srinivas Mcdowell MD - 04/14/2023 ECHOCARDIOGRAM SALEEM THOMAS : 1955 67 years Study Date: 04/14/2023 8:12:21 AM Gender: M BP: 130/83 mmHg Height: 180.00 cm BSA: 2.44 m? ? ? Weight: 128.00 kg Tech: [facility] Referring MD: EARNEST WYATT Site: [facility] Reading Location: MOBILE OP Patient Location: Outpatient. Procedure: Color Doppler, Spectral Doppler and 2D w/ Contrast. Indication for study: Atrial fibrillation, unspecified type (HC) Cardiac Rhythm: Irregular.Study quality: Technically limited. Imaging limitations: This study was subject to imaging limitations due tobody habitus and a prominent lung artifact. Final Impressions: 1. Technically limited exam. 2. Echo contrast was administered to enhance visualization of all leftventricular segments. 3. Normal LV size, borderline wall thickness, normal global systolicfunction with an estimated EF of 60 - 65%. 4. Right ventricular cavity size is normal, global systolic RV functionis normal. 5. Mildly enlarged left atrium. 6. The mitral valve is normal, mild mitral regurgitation. Chamber Sizes and Function Normal left ventricular size, borderline wall thickness, normal globalsystolic function with an estimated EF of 60 - 65%. Left atrial size ismildly enlarged. Right ventricular cavity size is normal, global systolicRV function is normal. The right atrium is mildly enlarged. Right atrialvolume index is 36 ml/m? ? ?. Right atrial area is 26 cm? ? ?. The pulmonaryartery is of normal size and origin. The sinus of Valsalva is normalsized. The ascending aorta is normal sized. Valves, RV Pressures and Diastolic Function The aortic valve is trileaflet, no stenosis and no regurgitation. Themitral valve is normal in structure, mild mitral regurgitation.Indeterminate pattern of LV diastolic filling. The tricuspid valve isnormal in structure. Tricuspid regurgitation is trace regurgitation. Thetricuspid regurgitant velocity is 2.1 m/s, the estimated right ventricularsystolic pressure is 18 mmHg plus right atrial pressure. The pulmonicvalve is normal. Trace pulmonary regurgitation. Masses, Effusion, Shunts There is no pericardial effusion. The inferior vena cava is normal sized,respiratory size variation greater than 50%. Interatrial septum is notwell visualized. MEASUREMENTS AND CALCULATIONS 2-D Measurements and LV Function: LVID (d) 5.0 cm LV FS% (2D) 29 % LVID (s) 3.6 cm LVOT diameter 2.4 cm IVS (d) 1.2 cm HR 110 bpm LVPW (d) 1.1 cm LA Vol index 33 ml/m2 Ao Sinus 3.5 cm RA Vol index 36 ml/m2 Asc Ao 3.9 cm RA area 26 cm? ? ? LA 5.1 cm RV Max 4C (d) 3.5 cm Aortic Valve: Vmax 1.2 m/s KASIA (V) 2.79 cm? ? ? VTI 0.20 m KASIA (I) 2.54 cm? ? ? LVOT V max 0.8 m/s Max PG 6 mmHg LVOT VTI 0.11 m Mean PG 3 mmHg SV 51 ml Dim Index 0.57 SV index 21 ml/m? ? ? CO 5.6 l/min CI 2.3 l/min/m? ? ? Tricuspid Valve and estimated PA pressures: TR Vmax 2.1 m/s TAPSE 1.6 cm TR maxG 18 mmHg Contrast documentation: 2 ml diluted Definity, lot #[id number], [facility]#[id number] was administered peripherally to enhance visualization of allleft ventricular segments. . This study was interpreted by an [facility] accredited facility. CC: HIM (med records) [facility]. Final Earnest Wyatt MD ECHO ORD from Last 3 Months Advance Directives Latest Code Status on File Code Status Date Activated Date Inactivated Comments Full Code 04/27/2023 8:16 AM 04/27/2023 12:31 PM Question Answer Comments Code Status Discussion: Reviewed Preferences Care Teams Director Of Instrumental Music Relationship Specialty Start Date End Date Earnest Wyatt MD [address], [place] [address] PCP - General Family Practice 04/13/23
--- OUTSIDE RECORDS SUMMARY | 2023-05-10 05:37 | XMS_ITS | Clinical Summary ---
Author Name Unknown Organization [facility] Address [address], [place] [address] Care Team Providers Care Traveling Repair Accountant Name Role Phone Found, No Pcp MD [...] Comments Blood Pressure 162/102 05/27/2014 2:05 PM PODIATRIC ASSISTANT Pulse - - Temperature 36.8 ??C (98.2 ??F) 02/04/2016 8:32 AM CD T Respiratory Rate - - Oxygen Saturation - - Inhaled Oxygen Concentration - - Weight 133.4 kg (294 lb) 05/27/2014 2:05 PM PODIATRIC ASSISTANT Height 180.3 cm (5' 11) 05/27/2014 2:05 PM PODIATRIC ASSISTANT Body Mass Index 41 05/27/2014 2:05 PM PODIATRIC ASSISTANT Plan of Treatment Health Maintenance Due Date [...] age to complete this topic Care Teams Traveling Repair Accountant Relationship Specialty Start Date End Date Found, No Pcp, [address] [place] [address] PCP - General 03/01/18
== END 2023-05-09 07:59 | disposition home or self-care (01) ==
LOC: NFLDREF 05-10 05:35
PROVIDERS: PCP Family Medicine; Referring Provider Family Medicine; Visit Provider Family Medicine
DX: E11.9 Type 2 diabetes mellitus without complications (principal); E78.00 Pure hypercholesterolemia, unspecified; I10 Essential (primary) hypertension
CPT/HCPCS: 80053; 80061

== ENCOUNTER 2023-11-07 07:37 | Outpatient (CLI) | payer OTHER, SELFPAY ==
--- OUTSIDE RECORDS SUMMARY | 2023-11-07 07:41 | XMS_ITS | Clinical Summary ---
Author Organization [employer] [facility] Address [place], [place] [address] Care Team Providers Care Back Tufter Name Role Phone Earnest Wyatt MD Primary Care Provider [phone] Allergies No known active allergies Medications Medication Sig Dispensed Refills Start Date End Date Status Eliquis 5 mg tablet Take 5 mg by mouth two times daily. 02/27/2023 Active lisinopril-hydrochl orothiazide (10-12.5 mg) tablet (PRINZIDE; ZESTORETIC) Take 1 Tablet by mouth once daily. 03/17/2023 Active metFORMIN (GLUCOPHAGE XR) 500 mg Extended-Release tablet Take 500 mg by mouth once daily with evening meal. 02/10/2023 Active rosuvastatin (CRESTOR) 10 mg tablet Take 10 mg by mouth once daily with evening meal. 03/09/2023 Active Accu-Chek Guide test strips strip USE TO TEST TWICE DAILY* 02/10/2023 Active Accu-Chek Guide Glucose Meter Use as directed.* 02/10/2023 Acti ve Accu-Chek Softclix Lancets USE DIRECTED TO TEST TWICE DAILY* 02/10/2023 Active semaglutide (OZEMPIC) 2 mg/3 mL pen Inject 0.5 mg subcutaneous once weekly. Active furosemide (LASIX) 20 mg tabletIndications:S /P ablation of atrial fibrillation Take 1 Tablet (20 mg) by mouth once daily if needed (for weight gain post ablation procedure). 3 Tablet 08/22/2023 Active sotaloL (BETAPACE) 80 mg tabletIndications:A trial fibrillation and flutter (HC) Take 1 Tablet (80 mg) by mouth every 12 hours. OK to stop 3 months post ablation procedure if no recurrence of atrial fibrillation 180 Tablet 1 09/06/2023 Active Encounters Date Type Department Care Team Description 09/06/2023 8:48 PM CDT - 09/06/2023 11:[address] [facility] Emergency Department [address] [place] [address] Parker Davidson MD Ground-level fall (Primary Dx); Abrasion of head, initial encounter; Alcoholic intoxication without complication (HC) Discharge Disposition: Home Self Care 09/05/2023 Refill [facility] [address] [facility] [address] [place] [phone] Sherif Hermosillo MD Refill Request (Sotalol) 08/30/2023 Telephone [facility] [address] [facility] [address] [place] [phone] Sherif Hermosillo MD Results (EKG) 08/24/2023 9:00 AM CDT Nurse/Clinic Staff Only [facility] [address] [place] [address] Matheus Wren Rn Primary Cardiovascular Diagnostic Testing 08/24/2023 Travel 08/21/2023 8:05 AM CDT Anesthesia Event [facility] [address] [place] [address] Jaky No MD Meyer, Ava, PAPER SORTER Student 08/21/2023 5:54 AM CDT - 08/22/2023 11:30 AM CDT Hospital Encounter [facility] [address] [place] [address] Sherif Hermosillo MD Augustin, Joshua Ryan, DO Atrial fibrillation and flutter (HC) (Primary Dx); S/P ablation of atrial fibrillation Discharge Disposition: Home Self Care 08/21/2023 Travel 08/14/2023 Telephone [facility] [address] [facility] [address] [place] [address] Rocael Baker MD Results (lipids) 08/07/2023 10:15 AM CDT Orders Only [facility] [address] [place] [address] Lab 08/07/2023 Travel from Last 3 Months Social History Tobacco Use Types Packs/Day Years Used Date Smoking Tobacco: Some Days Cigarettes Smokeless Tobacco: Never Tobacco Cessation:Ready to Q uit: Not Asked; Counseling Given: Not Answered Comments:Cigar during golf, 1-2 cigarettes daily Alcohol Use Standard Drinks/Week Comments Not Currently [...] Sign Reading Time Taken Comments Blood Pressure 130/87 09/06/2023 10:00 PM CDT Pulse 90 09/06/2023 10:15 PM CDT Temperature 37.1 ??C (98.7 ??F) 09/06/2023 8:55 PM CD T Respiratory Rate 16 09/06/2023 10:00 PM CDT Oxygen Saturation 91% 09/06/2023 10:15 PM CDT Inhaled Oxygen Concentration - - Weight 127.5 kg (281 lb) 09/06/2023 8:55 PM CDT Height 180.3 cm (5' 11) 09/06/2023 8:55 PM CDT Body Mass Index 39.19 09/06/2023 8:55 PM CDT Plan of Treatment Upcoming Encounters Date Type Department Care Team (Late st Contact Info) Description 01/24/2024 2:30 PM CDT Office Visit [facility] [address] [facility] [address] [place] [address] Sherif Hermosillo MD [address] [facility] [address] [place], [place] [phone] Health Maintenance Due Date Last Done Comments Pneumococcal series for age 65+ (1 of 2 - PCV) 1962 Tdap 11/06/1967 Depression screening for age 12+ 1968 Hepatitis C screening for age 18-79 1974 Tetanus booster 1976 Colonoscopy through age 75 2001 Zoster (shingles) series for age 50+ (1 of 2) 2006 AAA screening age 65-74 2021 Medicare Wellness for age 65+ 2021 COVID-19 vaccine series (2022- season) 2022 04/20/2021, 07/17/2020, 06/19/2020 Influenza for age 65+ 12/03/2023 BMI (ht and wt on same day) for age 18+ 07/13/2024 07/14/2023, 06/14/2023 Lipids for age 45-75 08/06/2028 08/07/2023 Procedures Procedure Name Priority Date/Time Associated Diagnosis Comments URINALYSIS MICROSCOPIC STAT 09/06/2023 10:24 PM CDT UA W/ SEDIMENT EXAM REFLEXED PER CRITERIA STAT 09/06/2023 10:24 PM CDT ETHANOL SERUM OR PLASMA STAT 09/06/2023 10:[address] SPINE CERVICAL WO STAT 09/06/2023 9:[address] HEAD BRAIN WO STAT 09/06/2023 9:38 PM CDT EXTRA TUBE RED Today 09/06/2023 9:16 PM CDT EXTRA TUBE BLUE Today 09/06/2023 9:16 PM CDT MAGNESIUM STAT 09/06/2023 9:09 PM CDT BASIC METABOLIC PANEL STAT 09/06/2023 9:09 PM CDT CBC W PLT NO DIFF STAT 09/06/2023 9:0 8 PM CDT EKG 12 LEAD STAT 09/06/2023 8:59 PM CDT EKG 12 LEAD Routine 08/24/2023 Atrial fibrillation and flutter (HC) SCAN-CARDIAC STRIP 08/22/2023 7: 44 AM CDT GLUCOSE METER Timed 08/22/2023 7:25 AM CDT EKG 12 LEAD Early AM 08/22/2023 6:17 AM CDT SCAN-CARDIAC STRIP 08/22/2023 5: 12 AM CDT GLUCOSE METER Timed 08/21/2023 9:40 PM CDT SCAN-CARDIAC STRIP 08/21/2023 8: 04 PM CDT GLUCOSE METER Timed 08/21/2023 4:26 PM CDT SCAN-CARDIAC STRIP 08/21/2023 3: 49 PM CDT SCAN-CARDIAC STRIP 08/21/2023 3: 49 PM CDT GLUCOSE METER Timed 08/21/2023 1:36 PM CDT GLUCOSE METER Timed 08/21/2023 11:05 AM CDT HCHG ACTIVATED CLOTTING TM CV Timed 08/21/2023 10:47 AM CDT HCHG ACTIVATED CLOTTING TM CV Timed 08/21/2023 9:54 AM CDT [facility]CH[facility] ACTIVATED CLOTTING TM CV Timed 08/21/2023 9:24 AM CDT [facility]CH[facility] ACTIVATED CLOTTING TM CV Timed 08/21/2023 8:58 AM CDT ENDOTRACHEAL TUBE Routine 08/21/2023 8:3 7 AM CDT EP STUDY /ABLATION Routine 08/21/2023 8: 33 AM CDT MAGNESIUM WILBER 08/21/2023 6:42 AM CDT BASIC METABOLIC PANEL Preop 08/21/2023 6:42 AM CDT EXTRA TUBE GOLD/SST Today 08/21/2023 6 :41 AM CDT CBC W PLT NO DIFF Preop 08/21/2023 6:4 1 AM CDT SCAN-CARDIAC STRIP 08/21/2023 12 :00 AM CDT LIPID PANEL Routine 08/07/2023 10:16 AM CDT Hyperlipidemia, unspecified hyperlipidemia type LIPOPROTEIN A Routine 08/07/2023 10:16 AM CDT Hyperlipidemia, unspecified hyperlipidemia type from Last 3 Months Results * URINALYSIS MICROSCOPIC (09/06/2023 10:24 PM CDT) RBC 0-2 0-2, None Seen /HPF 09/06/2023 10:58 PM CDT [facility] WBC 0-2 0-2, 3-5, None Seen /HPF 09/06/2023 10:58 PM CDT [facility] BACTERIA None Seen None Seen, Rare, Few Bacteria/ HPF 09/06/2023 10:58 PM CDT [facility] EPITHELIAL CELLS None Seen None Seen, Few Epi/HPF 09/06/2023 10:58 PM CDT [facility] HYALINE CASTS 0-2 0-2, 3-5 /LPF 09/06/2023 10:58 PM CDT [facility] Urine URINE SPECIMEN / Unknown Non-Blood / Unknown 09/06/2023 10:24 PM CDT 09/06/2023 10:29 PM CDT Parker Davidson MD URINE [facility] [address] [place] [address], * (ABNORMAL) UA W/ SEDIMENT EXAM REFLEXED PER CRITERIA (09/06/2023 10:24 PM CDT) COLOR Yellow Yellow Color 09/06/2023 10:58 PM CDT [facility] CLARITY Clear Clear Clarity 09/06/2023 10:58 PM CDT [facility] SPECIFIC GRAVITY,URINE 1.020 1.010, 1.015, 1.020, 1.025 09/06/2023 10:58 PM CDT [facility] PH,URINE 5.5 6.0, 7.0, 8.0, 5.5, 6.5, 7.5, 8.5 09/06/2023 10:58 PM CDT [facility] UROBILINOGEN, QUALITATIVE Normal Normal EU/dl 09/06/2023 10:58 PM CDT [facility] PROTEIN, URINE Negative Negative mg/dL 09/06/2023 10:58 PM CDT [facility] GLUCOSE, URINE 250(A) Negative mg/dL 09/06/2023 10:58 PM CDT [facility] KETONES,URINE Trace(A) Negative mg/dL 09/06/2023 10:58 PM CDT [facility] BILIRUBIN,URI NE Negative Negative 09/06/2023 10:58 PM CDT [facility] OCCULT BLOOD,URINE Trace(A) Negative 09/06/2023 10:58 PM CDT [facility] NITRITE Negative Negative 09/06/2023 10:58 PM CDT [facility] LEUKOCYTE ESTERASE Negative Negative 09/06/2023 10:58 PM CDT [facility] Urine URINE SPECIMEN / Unknown Non-Blood / Unknown 09/06/2023 10:24 PM CDT 09/06/2023 10:29 PM CDT Parker Davidson MD URINE [facility] [address] [place] [address], * (ABNORMAL) ETHANOL SERUM OR PLASMA (09/06/2023 10:06 PM CDT) ETHANOL 0.239(H) <0.010 g/dL 09/06/2023 10:[address] [facility] Blood BLOOD SPECIMEN / Unknown Butterfly / Unknown 09/06/2023 10:06 PM CDT 09/06/2023 10:10 PM CDT Parker Davidson MD PIER MASTER ASSISTANT RY [facility] [address] [place] [address], * CT SPINE CERVICAL WO (09/06/2023 9:40 PM CDT) Anatomical Region Laterality Modality CERVICAL SPINE, NECK, Spine Comp uted Tomography 09/06/2023 10:0 9 PM CDT Narrative 09/06/2023 10:09 PM CDT For Patients: ??As a result of the Cures Act, medical imaging exams and procedure reports are released immediately into your electronic medical record. ??You may view this report before your referring provider. ??If you have questions, please contact your health care provider. Indication: Neck pain. Trauma. Technique: Noncontrast axial CT of the cervical spine with coronal and sagittal reformats are provided. ??No comparisons. Findings: The overall stature, alignment of the cervical spine is within normal limits. ??No convincing evidence of suspicious bony fragments narrowing the central canal or neural foramina. Prevertebral soft tissues, cervical airway, dens and lateral masses are within normal limits. Moderate scattered degenerative changes of the cervical spine. ?? Impression: 1. No convincing radiographic evidence of acute osseous injury. 2. Moderate scattered degenerative changes of the cervical spine. Please note that all CT scans at this facility use dose modulation, iterative reconstruction, and/or weight-based dosing when appropriate to reduce radiation dose to as low as reasonably achievable. Dictated by Edis Tom MD @ 09/06/2023 10:09:40 PM (Electronically Signed) Procedure Note Reyes Tom DO - 09/06/2023 For Patients: As a result of the s Act, medical imagingexams and procedure reports are released immediately into your electronicmedical record. You may view this report before your referring provider.If you have questions, please contact your health care provider. Indication: Neck pain. Trauma. Technique: Noncontrast axial CT of the cervical spine with coronal and sagittalreformats are provided. No comparisons. Findings: The overall stature, alignment of the cervical spine is within normallimits. No convincing evidence of suspicious bony fragments narrowing thecentral canal or neural foramina. Prevertebral soft tissues, cervicalairway, dens and lateral masses are within normal limits. Moderatescattered degenerative changes of the cervical spine. Impression: 1. No convincing radiographic evidence of acute osseous injury. 2. Moderate scattered degenerative changes of the cervical spine. Please note that all CT scans at this facility use dose modulation,iterative reconstruction, and/or weight-based dosing when appropriate toreduce radiation dose to as low as reasonably achievable. Dictated by Edis Tom MD @ 09/06/2023 10:09:40 PM (Electronically Signed) Parker Davidson MD CT * CT HEAD BRAIN WO (09/06/2023 9:38 PM CDT) Anatomical Region Laterality Modality HEAD, BRAIN Computed Tomogra phy 09/06/2023 10:0 2 PM CDT Impressions 09/06/2023 10:02 PM CDT 1. No acute intracranial abnormality. 2. Scattered paranasal sinus mucosal thickening as above with suggestion of superimposed fungal colonization. Please note that all CT scans at this facility use dose modulation, iterative reconstruction, and/or weight-based dosing when appropriate to reduce radiation dose to as low as reasonably achievable. Dictated by Feliberto Begum MD @ 09/06/2023 10:02:40 PM (Electronically Signed) Narrative 09/06/2023 10:02 PM CDT For Patients: ??As a result of the 21st Century Cures Act, medical imaging exams and procedure reports are released immediately into your electronic medical record. ??You may view this report before your referring provider. ??If you have questions, please contact your health care provider. INDICATION: Trauma, fall. TECHNIQUE: CT head without contrast. COMPARISON: None. FINDINGS: CSF spaces: Proportionate prominence of the ventricles and sulci, reflecting mild generalized cerebral volume loss. Brain parenchyma: Chronic lacunar infarcts bilateral basal ganglia. The underwood- white differentiation is maintained. Patchy white matter low attenuation changes, nonspecific but likely reflecting chronic small vessel ischemic disease. No sign of mass, hemorrhage, or midline shift. Atherosclerotic calcifications of the cavernous carotids and carotid siphons. Skull base and calvarium: Mild to moderate scattered mucosal thickening in the right frontal, bilateral ethmoid, right maxillary, and right sphenoid sinuses. Few areas of patchy hypoattenuation, which may be seen the setting of fungal colonization. Mastoid air cells are well aerated. The visualized orbits are grossly unremarkable. No skull fractures. Procedure Note Feliberto Begum MD - 09/06/2023 For Patients: As a result of the Cures Act, medical imagingexams and procedure reports are released immediately into your electronicmedical record. You may view this report before your referring provider.If you have questions, please contact your health care provider. INDICATION: Trauma, fall. TECHNIQUE: CT head without contrast. COMPARISON: None. FINDINGS: CSF spaces: Proportionate prominence of the ventricles and sulci,reflecting mild generalized cerebral volume loss. Brain parenchyma: Chronic lacunar infarcts bilateral basal ganglia. Thegray- white differentiation is maintained. Patchy white matter lowattenuation changes, nonspecific but likely reflecting chronic smallvessel ischemic disease. No sign of mass, hemorrhage, or midline shift.Atherosclerotic calcifications of the cavernous carotids and carotidsiphons. Skull base and calvarium: Mild to moderate scattered mucosal thickening inthe right frontal, bilateral ethmoid, right maxillary, and right sphenoidsinuses. Few areas of patchy hypoattenuation, which may be seen thesetting of fungal colonization. Mastoid air cells are well aerated. Thevisualized orbits are grossly unremarkable. No skull fractures. IMPRESSION: 1. No acute intracranial abnormality. 2. Scattered paranasal sinus mucosal thickening as above with suggestionof superimposed fungal colonization. Please note that all CT scans at this facility use dose modulation,iterative reconstruction, and/or weight-based dosing when appropriate toreduce radiation dose to as low as reasonably achievable. Dictated by Feliberto Begum MD @ 09/06/2023 10:02:40 PM (Electronically Signed) Parker Davidson MD CT * EXTRA TUBE RED (09/06/2023 9:16 PM CDT) Blood BLOOD SPECIMEN / Unknown Non-Lab Venipuncture / Unknown 09/06/2023 9:16 PM CDT 09/06/2023 9:17 PM CDT Parker AREVALO Performing Organization Address [facility] Co de Phone Number [facility] [address] [place] [address], * EXTRA TUBE BLUE (09/06/2023 9:16 PM CDT) Blood BLOOD SPECIMEN / Unknown Non-Lab Venipuncture / Unknown 09/06/2023 9:16 PM CDT 09/06/2023 9:17 PM CDT Parker AREVALO Performing Organization Address [facility] Co de Phone Number [facility] [address] [place] [address], [place] * MAGNESIUM (09/06/2023 9:09 PM CDT) Only the most recent of2 resultswithin the time period is included. MAGNESIUM 2.0 1.6 - 2.4 mg/dL 09/06/2023 9:42 PM CDT [facility] Blood BLOOD SPECIMEN / Unknown Butterfly / Unknown 09/06/2023 9:09 PM CDT 09/06/2023 9:14 PM CDT Parker Davidson MD PIER MASTER ASSISTANT RY Performing Organization Address [facility] Co de Phone Number [facility] [address] [place] [address], * (ABNORMAL) BASIC METABOLIC PANEL (09/06/2023 9:09 PM CDT) Only the most recent of2 resultswithin the time period is included. SODIUM 143 136 - 145 mmol/L 09/06/2023 9:42 PM CDT [facility] POTASSIUM 3.9 3.5 - 5.1 mmol/L 09/06/2023 9:42 PM CDT [facility] CHLORIDE 106 98 - 107 mmol/L 09/06/2023 9:42 PM T [facility] CO2,TOTAL 26 22 - 29 mmol/L 09/06/2023 9:42 PM T [facility] ANION GAP 11 5 - 18 09/06/2023 9:42 PM CDT [facility] GLUCOSE 147(H) 70 - 99 mg/dL 09/06/2023 9:42 PM CDT [facility] CALCIUM 8.9 8.8 - 10.2 mg/dL 09/06/2023 9:42 PM T [facility] BUN 28(H) 8 - 23 mg/dL 09/06/2023 9:42 PM T [facility] CREATININE 1.02 0.70 - 1.20 mg/dL 09/06/2023 9:42 PM T [facility] BUN/CREAT RATIO 27(H) 10 - 20 9:42 PM T [facility] eGFR 81(L) >90 mL/min/1.7 3m2 09/06/2023 9:42 PM T [facility] Comment:As of 2021, eG FR is calculated by the CKD-EPI creatinine equation without race adjustment. ??eGFR can be influenced by muscle mass, exercise, and diet. ??The reported eGFR is an estimation only and is only applicable if the renal function is stable. Blood BLOOD SPECIMEN / Unknown Butterfly / Unknown 09/06/2023 9:09 PM CDT 09/06/2023 9:14 PM CDT Parker Davidson MD PIER MASTER ASSISTANT RY [facility] [address] [place] [address], * CBC W PLT NO DIFF (09/06/2023 9:08 PM CDT) Only the most recent of2 resultswithin the time period is included. WHITE BLOOD COUNT 9.1 4.5 - 11.0 thou/cu mm 09/06/2023 9:20 PM CDT [facility] RED BLOOD COUNT 4.77 4.30 - 5.90 mil/cu mm 09/06/2023 9:20 PM CDT [facility] HEMOGLOBIN 14.2 13.5 - 17.5 g/dL 09/06/2023 9:20 PM CDT [facility] HEMATOCRIT 40.8 37.0 - 53.0 % 09/06/2023 9:20 PM CDT [facility] MCV 86 80 - 100 fL 09/06/2023 9:20 PM CDT [facility] MCH 29.8 26.0 - 34.0 pg 09/06/2023 9:20 PM CDT [facility] MCHC 34.8 32.0 - 36.0 g/dL 09/06/2023 9:20 PM CDT [facility] RDW 13.8 11.5 - 15.5 % 09/06/2023 9:20 PM CDT [facility] PLATELET COUNT 198 140 - 440 thou/cu mm 09/06/2023 9:20 PM CDT [facility] MPV 9.4 6.5 - 11.0 fL 09/06/2023 9:20 PM CDT [facility] NRBC 0.0 % 09/06/2023 9:20 PM CDT [facility] ABS NRBC 0.0 thou /cu mm 09/06/2023 9:20 PM CDT [facility] Blood BLOOD SPECIMEN / Unknown Butterfly / Unknown 09/06/2023 9:08 PM CDT 09/06/2023 9:14 PM CDT Parker Davidson MD HEMATOL OGY [facility] [address] [place] [address], * EKG 12 LEAD (09/06/2023 8:59 PM CDT) Only the most recent of3 resultswithin the time period is included. Interpretation Sinus rhythm with Premature atrial complexes Low voltage QRS Borderline ECG BEYOND NOW Ventricular Rate 90 BPM BEYOND NOW Atrial Rate 90 BPM BEYOND NOW P-R Interval 190 ms BEYOND NOW QRS Duration 88 ms BEYOND NOW QT 372 ms BEYOND NOW QTc 455 ms BEYOND NOW P [place] 91 degrees BEYOND NOW R [place] 29 degrees BEYOND NOW T [place] 38 degrees BEYOND NOW 09/06/2023 8:59 PM CDT 09/06/2023 11:14 PM CDT Parker Davidson MD EKG ORD Performing Organization Address [facility] Co de Phone Number BEYOND NOW [place], [place] * SCAN-CARDIAC STRIP (08/22/2023 7:44 AM CDT) Scanner OTHER * (ABNORMAL) GLUCOSE METER (08/22/2023 7:25 AM CDT) Only the most recent of5 resultswithin the time period is included. Pathologist [facility] GLUCOSE METER 204(H) 65 - 100 mg/dL 08/22/2023 7:26 AM CDT [facility] Blood BLOOD SPECIMEN / Unknown 08/22/2023 7:25 AM CDT 08/22/2023 7:26 AM CDT Sherif Hermosillo MD CHEMISTRY Performing Organization Address City/[facility]/ZIP Co de Phone Number [facility] [address] [place] [id number], * SCAN-CARDIAC STRIP (08/22/2023 5:12 AM CDT) Scanner OTHER * SCAN-CARDIAC STRIP (08/21/2023 8:04 PM CDT) Scanner OTHER * SCAN-CARDIAC STRIP (08/21/2023 3:49 PM CDT) Scanner OTHER * SCAN-CARDIAC STRIP (08/21/2023 3:49 PM CDT) Scanner OTHER * (ABNORMAL) ACTIVATED CLOTTING TIME [id number] ACT (08/21/2023 10:47 AM CDT) Only the most recent of4 resultswithin the time period is included. ACTIVATED CLOTTING TIME, POCT 195(H) 74 - 125 sec 08/21/2023 10:53 AM CDT [facility] Blood BLOOD SPECIMEN / Unknown 08/21/2023 10:47 AM CDT 08/21/2023 10:53 AM CDT Sherif Hermosillo MD HEMATOLOGY Performing Organization Address City/State/[facility] Co de Phone Number [facility] [address] [place] [address] * ETT (08/21/2023 8:37 AM CDT) Narrative Erika Curiel CRNA Student - 08/21/2023 8:37 AM CDT Erika Curiel CRNA Student ? 08/21/2023 ??8:43 AM Procedure: ETT Patient location during procedure: OR ETT Properties Mask Ventilation: easy and oral airway Final Technique: direct laryngoscopy Type: straight Location: oral Tube Size: 8.0 mm Stylet: yes Laryngoscope Blade: Mac Blade Size: 4 Cormack-Lehane Grade View: 1 Insertion Attempts: 1 Placement Verification: auscultation, end tidal CO2 and symmetrical chest wall movement Assessment: pharynx clear, atraumatic and dentition unchanged Secured at: other (comment) (25) Measured From: lips Difficulty: 1 (somewhat) (cricoid pressure) Erika Curiel CRNA Student ANESTHESIA PX NOT E ORDERABLES * EP STUDY /ABLATION (08/21/2023 8:33 AM CDT) Anatomical Region Laterality Modality X-Ray Angiograph y, X-Ray Angiography 08/21/2023 8:33 AM CDT Narrative Transcriptions Sherif Hermosillo MD - 08/21/2023 10:21 AM CDT [facility] Electrophysiology Implant Report Name: NOREEN MARTI Event Date: 08/21/2023 [employer] ID #: [id number] Date: 1955 Gender: Male Age: 67 [facility] #: [id number] Procedure Performed By: SHERIF HERMOSILLO [facility] Referring Physician: Summary / Conclusions ARRHYTHMIA * Persistent atrial fibrillation successfully ablated. * Typical atrial flutter induced with successful ablation. * Spontaneous atypical right-sided atrial flutter with successfulablation. POST ABLATION * Post ablation testing without isoproterenol infusion revealed normalbasic intervals. NORMAL EP STUDY * Normal His/Purkinje system conduction. No evidence of dual AV nodalphysiology nor accessory pathway conduction. VA conduction was intact. Pre-Operative Diagnosis ? Persistent atrial fibrillation Post-Operative Diagnosis ? Same as Pre-operative diagnosis Indications ? Same as Pre-operative diagnosis Brief Patient History Noreen Marti is a 67 y.o. male with persistent atrial fibrillation,diabetes mellitus, hypertension and hyperlipidemia. He has experiencedsymptomatic and recurrent persistent atrial fibrillation associated withpoor ventricular rate control. After discussion regarding furthertreatment options, he now presents for catheter ablation of his AF. Consent & [place] Protocol [place] protocol was followed. TIME OUT conducted just prior tostarting procedure confirmed patient identity, site/side, procedure,patient position, and availability of correct equipment and implants (ifapplicable). The risks, benefits, and alternatives of the procedure were discussed withthe patient and written informed consent was obtained. Procedure Description Noreen Marti presented in atrial fibrillation. He underwent generalanesthesia (by the anesthesia team) and was prepped and draped in theusual sterile fashion. An esophageal thermometer probe was placed tomonitor esophageal temperatures during the ablation. Venous access was obtained with the use of ultrasound guidance. Usingultrasound guidance and a percutaneous technique, the right femoral veinwas accessed; ultrasound was used to confirm vessel patency, localizingneedle into the lumen of the vessel. Using ultrasound guidance and apercutaneous technique, the left femoral vein was accessed; ultrasound wasused to confirm vessel patency, localizing needle into the lumen of thevessel. Two short sheaths (8Fr and 7Fr) were placed into the right femoralvein. One 9Fr sheath was placed into the left femoral vein. A 10-pole Decanav catheter was advanced into the coronary sinus. An ICEcatheter was advanced into the right atrium. Over a long guidewire, the 8Fr short sheath was exchanged for an 8FrPreface sheath. A heparin bolus and infusion were administered to maintaina therapeutic ACT throughout the case. With the use of ICE andfluoroscopic guidance, a single trans-septal puncture was performed. APenta-ray catheter was inserted into the left atrium. A 200J cardioversion restored sinus rhythm. With the use of the MCH+ 3-dimensional mapping system, a high densityelectroanatomic map was created of the left atrium (including carefulidentification of the PV ostia and antrum, the anterior ridge, the DANAE andthe mitral valve). Esophageal location was also noted. The LA was noted pete dilated in size with 4 separate PV ostia. All pulmonary veins hadexcellent potentials. The left atrium had no scar at baseline. ThePenta-ray catheter was removed and a [employer] SmartTouch irrigatedablation catheter was inserted into the left atrium. Ablation was performed, with all PV antra ablated in a widecircumferential manner (power at 50W, 6-8 second duration throughout;continuous esophageal monitoring was performed, with ablation delayed ifany temperature rises noted). High-output pacing was performed beforeablation along the right-sided chucho/anterior wall to ensure no proximityto the phrenic nerve. The posterior isthmus was otherwise not ablated, given healthy voltages. Entrance and exit block were confirmed in all pulmonary veins. Dissociatedfiring was appreciated in the RSPV. The catheter and sheath were removed from the left atrium. Anelectrophysiology study was then performed (including coronary sinusatrial pacing and recording, right ventricular pacing and recording, aswell as His bundle recording). The AH/HV intervals were normal. There wasno evidence of dual AV rievra physiology nor accessory pathway conduction.VA conduction was intact. Burst atrial pacing induced typical atrial flutter, concentric atrialactivation, TCL 220msec. Ablation of the cavotricuspid isthmus wasperformed. The ablation catheter was moved to the 6 o'clock position onthe tricuspid annulus and a line of RF lesions was applied across the CTI,with the assistance of ICE imaging, CARTO mapping and fluoroscopy. Near the end of the ablation line, the activation changed slightly (stillconcentric), with TCL 210msec. Repeat mapping demonstrated an atypicalatrial flutter arising from the lateral wall (with areas of patchy scar inthis region). Ablation here slowed and then terminated the tachycardia tosinus rhythm (high output pacing prior to ablation was without diaphragmstimulation, and proper diaphragm motion was confirmed post-ablation). The ablation catheter was re-inserted into the left atrium, via the priortrans- septal access point. Entrance block was again confirmed in all PVs.The sheath and ablation catheter were retracted into the right atrium. TheCTI line demonstrated bidirectional block, with trans-isthmus times [id number]. The procedure was then terminated. The heparin was discontinued. Protaminewas administered. ICE showed no pericardial effusion. The catheters wereremoved from the body. When the ACT was appropriate, the sheaths werepulled and hemostasis achieved with manual pressure. Mr Marti wasextubated in the EP lab and transferred to the PACU for furthermonitoring. He tolerated the procedure well with no apparent complicationsnoted. Procedure(s) Performed ? A Fib/PV Isolation Ablation ? Site-Rite Ultrasound used for vascular access ? Intracardiac Echocardiography ? 3D Mapping Procedure Detail Estimated Blood Loss: < 50 ml Specimen Collected: None Level of Sedation Achieved: Deep Total Fluoro Time: 1.5 MIN PIT STEWARD Total Fluoro Dose: 2 mGy Staff Name Role Sherif Hermosillo Network Support Manager Jeremiah Velazquez RN Nurse Clark Escobar EPT Scrub Ilana Chiu RN Nurse Eve Chawla SUPERVISOR [employer]ING Monitor Medications Ordered and Administered Start Time Stop Time Medication Dose Units Route Ordered By Given By 08:35 0.25% Bupivicaine 10 mL Subcut MD Sherif Pandey MD 08:36 1% Lidocaine Hydrochloride 10 mL Subcut Chaparro Pandey MD 08:45 Heparin 80064 Units IV MD Jeremiah Pandey RN 09:31 Heparin 3000 Units IV MD Ilana Pandey RN 10:01 Heparin 5000 Units IV MD Jeremiah Pandey, RN 10:12 Protamine 60 Mg IV MD Jeremiah Pandey, RN The anesthesia service monitored the patient?s conscious sedation duringthe procedure. The medications listed above were verbally ordered by me and read back tome as documented above. Refer to the hemodynamic procedure log report for additional casedetails. electronically signed on 08/21/2023 10:21:51 AM with status of Final Sherif Hermosillo MD Implanting Calculation Clerk [facility] [address] [place] [address] (p) [phone](f) Sherif Hermosillo MD CV IMAGING * EXTRA TUBE GOLD/SST (08/21/2023 6:41 AM CDT) Blood BLOOD SPECIMEN / Unknown Non-Lab Venipuncture / Unknown 08/21/2023 6:41 AM CDT 08/21/2023 7:01 AM CDT Sherif Hermosillo MD LABORATORY [facility] [address] [place] [address], * SCAN-CARDIAC STRIP (08/21/2023 12:00 AM CDT) Narrative 08/21/2023 12:00 AM CDT Ordered by an unspecified provider. Other Clinical Staff OTHER * LIPOPROTEIN A (08/07/2023 10:16 AM CDT) [facility] LIPOPROTEIN (A) <8.4 <75.0 nmol/L 08/10/2023 5:11 AM CDT [facility] Comment: Results verified by repeat testing Note: ??Values greater than or equal to 75.0 nmol/L may ? indicate an independent risk factor for CHD, ? but must be evaluated with caution when applied ? to non- populations due to the ? influence of genetic factors on Lp(a) across ? ethnicities. Blood BLOOD SPECIMEN / Unknown Venipuncture / Unknown 08/07/2023 10:16 AM CDT 08/07/2023 10:18 AM CDT Narrative [facility] - 08/10/2023 5:11 AM CDT Performed at: ??01 - [facility] [address] [place] [address] ??[id number] Naphthalene Operator: Federica Simpson MD, Phone: ??[phone] Rocael Baker MD SEND OUTS [facility] ([facility]) [address] [place] [id number], * LIPID PANEL (08/07/2023 10:16 AM CDT) CHOLESTEROL,TOTAL 160 100 - 199 mg/dL 08/07/2023 2:52 PM CDT [facility] Comment: Cholesterol, Total Reference Ranges Desirable <200 mg/dL Borderline 200-239 mg/dL High >=240 mg/dL TRIGLYCERIDES 109 <150 mg/dL 08/07/2023 2:52 PM CDT [facility] HDL CHOLESTEROL 59 >40 mg/dL 2:52 PM CDT [facility] NON-HDL CHOLESTEROL 101 <145 mg/dl 08/07/2023 2:52 PM CDT [facility] CHOL/HDL RATIO 2.71 <4.50 08/07/2023 2:52 PM CDT [facility] LDL CHOLESTEROL 79 <=130 mg/dL 08/07/2023 2:52 PM CDT [facility] VLDL CHOLESTEROL 22 <=30 mg/dL 08/07/2023 2:[address] [facility] PROVIDER ORDERED STATUS RANDOM 08/07/2023 2:52 PM CDT [facility] Blood BLOOD SPECIMEN / Unknown Venipuncture / Unknown 08/07/2023 10:16 AM CDT 08/07/2023 10:18 AM CDT Rocael Baker MD CHEMISTRY [facility] [address] [place] [address], [place] from Last 3 Months Advance Directives Documents on File Type Date Recorded Patient Terminal Supervisor Expl anation Healthcare Directive 08/18/2023 05 024 * Full Code (Latest Code Status on File) Date Activated Date Inactivated Comments 08/21/2023 10:15 AM 08/22/2023 1:31 PM Question Answer Comments Code Status Discussion: Other * Full Code Date Activated Date Inactivated Comments 04/27/2023 8:16 AM 04/27/2023 12:31 PM Question Answer Comments Code Status Discussion: Reviewed Preferences Care Teams Back Tufter Relationship Specialty Start Date End Date Earnest Wyatt MD [address] [place] [address] PCP - General Family Practice 04/13/23
--- OUTSIDE RECORDS SUMMARY | 2023-11-07 07:41 | XMS_ITS | Clinical Summary ---
Author Organization [facility] Address [address], [place] [address] Care Team Providers Care Teachers' Aide Name Role Phone Found, No Pcp MD Primary Care Provider Unavailab le Source Comments You are receiving this document as you are listed as the primary care provider,follow-up provider, or the patient has been referred to you for consultation.This is in compliance with the Medicare and[place] Incent[place],which states Providers who transition [...] Comments Blood Pressure 162/102 05/27/2014 2:05 PM PILE DRIVER ENGINEER Pulse - - Temperature 36.8 ??C (98.2 ??F) 02/04/2016 8:32 AM CD T Respiratory Rate - - Oxygen Saturation - - Inhaled Oxygen Concentration - - Weight 133.4 kg (294 lb) 05/27/2014 2:05 PM PILE DRIVER ENGINEER Height 180.3 cm (5' 11) 05/27/2014 2:05 PM PILE DRIVER ENGINEER Body Mass Index 41 05/27/2014 2:05 PM PILE DRIVER ENGINEER Plan of Treatment Health Maintenance Due Date Last Done Comments Colon Cancer Screening Plan Due 1955 Hep C Screening (Preventive Services) 1955 PSA Screening Discussion 1955 Adult Preventive Visit 1974 DTaP/Tdap/Td (1 - Tdap) 11/06/1975 Cholesterol 11/06/1991 Zoster/Shingles (1 of 2) 2006 Pneumococcal 65+ Yrs (1 - PCV) 2021 COVID-19 Vaccine (1 - 2022-2 4 season) 2022 Influenza (#1) 2023 HepA Aged Out No longer eligi ble [...] age to complete this topic Care Teams Teachers' Aide Relationship Specialty Start Date End Date Found, No Pcp, [address] [place] [address] PCP - General 03/01/18
--- NOTE | 2023-11-07 08:15 | CRLHL7_ITS ---
For Patients: As a result of the Century Cures Act, medical imaging exams and procedure reports are released immediately into your electronic medical record. You may view this report before your referring provider. If you have questions, please contact your health care provider. CLINICAL INDICATION: Left shoulder pain. COMPARISON IMAGING STUDIES: Radiographs from 10/24/2023. TECHNICAL: Non-contrast MRI of the left shoulder. 1.5T MRI scanner. Axial, sagittal oblique and coronal oblique T1, PD, PD FS and T2-weighted images. FINDINGS: ROTATOR CUFF TENDONS AND MUSCLES: Full-thickness tearing of the distal supraspinatus and infraspinatus tendons with area of tearing measuring approximately 4.5 centimeters anterior/posterior by 3.2 centimeters medial/lateral. Moderate infraspinatus and mild supraspinatus muscle atrophy. Distal teres minor tendon is intact. Teres minor muscle mass is maintained. There is high-grade attenuation of the distal subscapularis tendon over a 2.5 centimeter craniocaudad extent with full-thickness tearing of the tendon from the lesser tuberosity. Moderate subscapularis muscle atrophy. ACROMIOCLAVICULAR JOINT AND CORACOACROMIAL ARCH: AC joint degenerative arthrosis. Coracoclavicular ligament intact. There is spurring of the undersurface of lateral acromion. Superior subluxation of the humeral head with narrowed acromiohumeral interval. Coracohumeral interval is patent. Subacromial-subdeltoid bursal fluid is nonspecific in the setting of full-thickness rotator cuff tendon tearing. BICEPS - LABRAL COMPLEX: Long head biceps tendon is medially dislocated from the bicipital groove compatible with disruption of the biceps jason mechanism. There is tendinosis and likely fraying of the tendon. Areas of degenerative glenoid labral fraying are present. GLENOHUMERAL JOINT: Small effusion with synovitis. Superior subluxation of the humeral head. Mild articular cartilage wear. OSSEOUS STRUCTURES: No fracture or avascular necrosis. SOFT TISSUES: No abnormality within the suprascapular or spinoglenoid notches nor within the quadrilateral space. Small intramuscular lipoma within the lateral deltoid muscle. IMPRESSION: 1. Full-thickness supraspinatus and infraspinatus tendon tearing. Mild supraspinatus and moderate infraspinatus muscle atrophy. 2. Full-thickness subscapularis tendon tearing with moderate muscle atrophy. 3. Disruption of the biceps jason mechanism with medial dislocation of the long head of the biceps tendon. 4. Mild glenohumeral joint cartilage wear with degenerative labral changes. Small effusion with synovitis. 5. AC joint degenerative arthrosis. 6. Subacromial spurring. Dictated by Ángel Pryor MD @ 11/07/2023 1:52:59 PM (Electronically Signed)
== END 2023-11-07 07:38 | disposition home or self-care (01) ==
LOC: MRI 07:39
PROVIDERS: PCP Family Medicine; Visit Provider Family Medicine
DX: M25.512 Pain in left shoulder (principal); M75.102 Unspecified rotator cuff tear or rupture of left shoulder, not specified as traumatic; S43.005A Unspecified dislocation of left shoulder joint, initial encounter; M25.412 Effusion, left shoulder; M19.012 Primary osteoarthritis, left shoulder
CPT/HCPCS: 73221

== ENCOUNTER 2023-11-27 11:28 | Outpatient (CLI) | payer OTHER, SELFPAY ==
--- OUTSIDE RECORDS SUMMARY | 2023-11-27 11:32 | XMS_ITS | Clinical Summary ---
Author Organization [facility] Address [address], [place] [address] Care Team Providers Care Jewel Diameter Gauger Name Role Phone Found, No Pcp MD Primary Care Provider Unavailab le Source Comments You are receiving this document as you are listed as the primary care provider,follow-up provider, or the patient has been referred to you for consultation.This is in compliance with the Medicare and[facility] E[facility] Incentive Program,which states Providers who transition [...] Comments Blood Pressure 162/102 05/27/2014 2:05 PM CONTACT ACID PLANT OPERATOR Pulse - - Temperature 36.8 ??C (98.2 ??F) 02/04/2016 8:32 AM CD T Respiratory Rate - - Oxygen Saturation - - Inhaled Oxygen Concentration - - Weight 133.4 kg (294 lb) 05/27/2014 2:05 PM CONTACT ACID PLANT OPERATOR Height 180.3 cm (5' 11) 05/27/2014 2:05 PM CONTACT ACID PLANT OPERATOR Body Mass Index 41 05/27/2014 2:05 PM CONTACT ACID PLANT OPERATOR Plan of Treatment Health Maintenance Due [...] age to complete this topic Care Teams Jewel Diameter Gauger Relationship Specialty Start Date End Date Found, No Pcp, [address] [place] [address] PCP - General 03/01/18
--- OUTSIDE RECORDS SUMMARY | 2023-11-27 11:32 | XMS_ITS | Clinical Summary ---
Author Organization [employer] [facility] Address [place], [place] [address] Care Team Providers Care Lockstitch Machine Operator Name Role Phone Earnest Wyatt MD Primary Care Provider [phone] Allergies No known active allergies Medications Medication [...] CDT - 09/06/2023 11:04 PM CDT Emergency [facility] Emergency Department [address] [place] [address] Parker Davidson MD Ground-level fall (Primary Dx); Abrasion of head, initial encounter; Alcoholic intoxication without complication (HC) Discharge Disposition: Home Self Care 09/05/2023 Refill [facility] [address] [facility] [address] [place] [phone] Fredy Hermosillo MD Refill Request (Sotalol) 08/30/2023 Telephone [facility] [address] [facility] [address] [place] [phone] Fredy Hermosillo MD Results (EKG) from Last 3 Months Social History Tobacco [...] Description 01/24/2024 2:30 PM CDT Office Visit [facility] [address] [place] [address] Fredy Hermosillo MD [address] [place], [place] [phone] Health Maintenance Due Date Last Done Comments [...] for age 65+ 2021 COVID-19 vaccine series ( season) 2022 04/20/2021, 07/17/2020, 06/19/2020 Influenza for [...] 12 LEAD STAT 09/06/2023 8:59 PM CDT LIPID PANEL Routine 08/07/2023 10:16 AM CDT Hyperlipidemia, unspecified hyperlipidemia type from Last 3 Months or Most Recently Relevant to Health Maintenance Results * URINALYSIS MICROSCOPIC (09/06/2023 10:24 PM CDT) RBC 0-2 0-2, None Seen /HPF 09/06/2023 10:58 PM CDT [facility] WBC 0-2 0-2, 3-5, None Seen /HPF 09/06/2023 10:58 PM CDT [facility] BACTERIA None Seen None Seen, Rare, Few Bacteria/ HPF 09/06/2023 10:58 PM CDT [facility] EPITHELIAL CELLS None Seen None Seen, Few Epi/HPF 09/06/2023 10:58 PM CDT [facility] HYALINE CASTS 0-2 0-2, 3-5 /LPF 09/06/2023 10:58 PM CDT [facility] Urine URINE SPECIMEN / Unknown Non-Blood / Unknown 09/06/2023 10:24 PM CDT 09/06/2023 10:29 PM CDT Parker Davidson MD [facility] [address] [place] [address], [place] * (ABNORMAL) UA W/ SEDIMENT EXAM REFLEXED PER CRITERIA (09/06/2023 10:24 PM CDT) COLOR Yellow Yellow Color 09/06/2023 10:58 PM CDT [facility] CLARITY Clear Clear Clarity 09/06/2023 10:58 PM CDT [facility] SPECIFIC GRAVITY,URINE 1.020 1.010, 1.015, 1.020, 1.025 09/06/2023 10:58 PM CDT [facility] PH,URINE 5.5 6.0, 7.0, 8.0, 5.5, 6.5, 7.5, 8.5 09/06/2023 10:58 PM CDT [facility] UROBILINOGEN, QUALITATIVE Normal Normal EU/dl 09/06/2023 10:58 PM CDT [facility] PROTEIN, URINE Negative Negative mg/dL 09/06/2023 10:58 PM CDT [facility] GLUCOSE, URINE 250(A) Negative mg/dL 09/06/2023 10:58 PM CDT [facility] KETONES,URINE Trace(A) Negative mg/dL 09/06/2023 10:58 PM CDT [facility] BILIRUBIN,URI NE Negative Negative 09/06/2023 10:58 PM CDT [facility] OCCULT BLOOD,URINE Trace(A) Negative 09/06/2023 10:58 PM CDT [facility] NITRITE Negative Negative 09/06/2023 10:58 PM CDT [facility] LEUKOCYTE ESTERASE Negative Negative 09/06/2023 10:58 PM CDT [facility] Urine URINE SPECIMEN / Unknown Non-Blood / Unknown 09/06/2023 10:24 PM CDT 09/06/2023 10:29 PM CDT Parker Davidson MD URINE [facility] [address] [place] [address], * (ABNORMAL) ETHANOL SERUM OR PLASMA (09/06/2023 10:06 PM CDT) ETHANOL 0.239(H) <0.010 g/dL 09/06/2023 10:34 PM CDT [facility] Blood BLOOD SPECIMEN / Unknown Butterfly / Unknown 09/06/2023 10:06 PM CDT 09/06/2023 10:10 PM CDT Parker Davidson MD NURSE CASE MANAGEMENT RY [facility] [address] [place] [address], [place] * CT SPINE CERVICAL WO (09/06/2023 9:40 PM CDT) Anatomical Region Laterality Modality CERVICAL SPINE, NECK, Spine Comp uted Tomography 09/06/2023 10:0 9 PM CDT Narrative 09/06/2023 10:09 PM CDT For Patients: ??As a result of the Century Cures Act, medical imaging exams and [...] 10:09:40 PM (Electronically Signed) Procedure Note Reyes Tom, - 09/06/2023 For Patients: As a result [...] For Patients: As a result of the Century Cures Act, medical imagingexams and procedure reports [...] PM CDT Parker AREVALO Performing Organization Address [facility] Co de Phone Number [facility] [address] [address], [place] * EXTRA TUBE BLUE (09/06/2023 9:16 PM CDT) Blood BLOOD SPECIMEN / Unknown Non-Lab Venipuncture / Unknown 09/06/2023 9:16 PM CDT 09/06/2023 9:17 PM CDT Parker AREVALO Performing Organization Address [facility] Co de Phone Number [facility] [address] [address], [place] * MAGNESIUM (09/06/2023 9:09 PM CDT) MAGNESIUM 2.0 1.6 - 2.4 mg/dL 09/06/2023 9:42 PM CDT [facility] Blood BLOOD SPECIMEN / Unknown Butterfly / Unknown 09/06/2023 9:09 PM CDT 09/06/2023 9:14 PM CDT Parker Davidson MD NURSE CASE MANAGEMENT RY Performing Organization Address [facility] Co de Phone Number [facility] [address] [address], [place] * (ABNORMAL) BASIC METABOLIC PANEL (09/06/2023 9:09 PM CDT) Pathologist [facility] SODIUM 143 136 - 145 mmol/L 09/06/2023 9:42 PM CDT [facility] POTASSIUM 3.9 3.5 - 5.1 mmol/L 09/06/2023 9:42 PM CDT [facility] CHLORIDE 106 98 - 107 mmol/L 09/06/2023 9:42 PM CDT [facility] CO2,TOTAL 26 22 - 29 mmol/L 09/06/2023 9:42 PM CDT [facility] ANION GAP 11 5 - 18 09/06/2023 9:42 PM CDT [facility] GLUCOSE 147(H) 70 - 99 mg/dL 09/06/2023 9:42 PM CDT [facility] CALCIUM 8.9 8.8 - 10.2 mg/dL 09/06/2023 9:42 PM T [facility] BUN 28(H) 8 - 23 mg/dL 09/06/2023 9:42 PM CDT [facility] CREATININE 1.02 0.70 - 1.20 mg/dL 09/06/2023 9:42 PM T [facility] BUN/CREAT RATIO 27(H) 10 - 20 9:42 PM CDT [facility] eGFR 81(L) >90 mL/min/1.7 3m2 09/06/2023 9:42 PM T [facility] Comment:As of 2021, eG FR is calculated by the CKD-EPI creatinine equation without race adjustment. ??eGFR can be influenced by muscle mass, exercise, and diet. ??The reported eGFR is an estimation only and is only applicable if the renal function is stable. Blood BLOOD SPECIMEN / Unknown Butterfly / Unknown 09/06/2023 9:09 PM CDT 09/06/2023 9:14 PM CDT Parker Davidson MD NURSE CASE MANAGEMENT RY [facility] [address] [place] [address], * CBC W PLT NO DIFF (09/06/2023 9:08 PM CDT) WHITE BLOOD COUNT 9.1 4.5 - 11.0 thou/cu mm 09/06/2023 9:20 PM CDT [facility] RED BLOOD COUNT 4.77 4.30 - 5.90 mil/cu mm 09/06/2023 9:20 PM CDT [facility] HEMOGLOBIN 14.2 13.5 - 17.5 g/dL 09/06/2023 9:20 PM CDT [facility] HEMATOCRIT 40.8 37.0 - 53.0 % 09/06/2023 9:20 PM CDT [facility] MCV 86 80 - 100 fL 09/06/2023 9:20 PM CDT [facility] MCH 29.8 26.0 - 34.0 pg 09/06/2023 9:20 PM CDT [facility] MCHC 34.8 32.0 - 36.0 g/dL 09/06/2023 9:20 PM CDT [facility] RDW 13.8 11.5 - 15.5 % 09/06/2023 9:20 PM CDT [facility] PLATELET COUNT 198 140 - 440 thou/cu mm 09/06/2023 9:20 PM CDT [facility] MPV 9.4 6.5 - 11.0 fL 09/06/2023 9:20 PM CDT [facility] NRBC 0.0 % 09/06/2023 9:20 PM CDT [facility] ABS NRBC 0.0 thou /cu mm 09/06/2023 9:20 PM CDT [facility] Blood BLOOD SPECIMEN / Unknown Butterfly / Unknown 09/06/2023 9:08 PM CDT 09/06/2023 9:14 PM CDT Parker Davidson MD HEMATOL OGY [facility] [address] [place] [address], * EKG 12 LEAD (09/06/2023 8:59 PM CDT) Interpretation Sinus rhythm with Premature atrial complexes Low voltage QRS Borderline ECG BEYOND NOW Ventricular Rate 90 BPM BEYOND NOW Atrial Rate 90 BPM BEYOND NOW P-R Interval 190 ms BEYOND NOW QRS Duration 88 ms BEYOND NOW QT 372 ms BEYOND NOW QTc 455 ms BEYOND NOW P [place] 91 degrees BEYOND NOW R [place] 29 degrees BEYOND NOW T [place] 38 degrees BEYOND NOW 09/06/2023 8:59 PM CDT 09/06/2023 11:14 PM CDT Parker Davidson MD EKG ORD Performing Organization Address [facility] Co de Phone Number BE[facility]OND NOW [place], [place] * LIPID PANEL (08/07/2023 10:16 AM CDT) CHOLESTEROL,TOTAL 160 100 - 199 mg/dL 08/07/2023 2:52 PM CDT [facility] Comment: Cholesterol, Total Reference Ranges Desirable <200 mg/dL Borderline 200-239 mg/dL High >=240 mg/dL TRIGLYCERIDES 109 <150 mg/dL 08/07/2023 2:52 PM CDT [facility] TRAL LABORAT[facility] HDL CHOLESTEROL 59 >40 mg/dL 2:52 PM CDT [facility] TR[facility] LAB[facility] NON-HDL CHOLESTEROL 101 <145 mg/dl 08/07/2023 2:52 PM CDT [facility] TR[facility] LAB[facility] CHOL/HDL RATIO 2.71 <4.50 08/07/2023 2:52 PM CDT [facility] LDL CHOLESTEROL 79 <=130 mg/dL 08/07/2023 2:52 PM CDT [facility] TR[facility] VLDL CHOLESTEROL 22 <=30 mg/dL 08/07/2023 2:52 PM CDT [facility] TR[facility] LAB[facility]AT[facility] PROVIDER ORDERED STATUS RANDOM 08/07/2023 2:52 PM CDT [facility] [facility] Blood BLOOD SPECIMEN / Unknown Venipuncture / Unknown 08/07/2023 10:16 AM CDT 08/07/2023 10:18 AM CDT Rocael Baker MD [facility] [address] [place] [address], from Last 3 Months or Most Recently Relevant to Health Maintenance Advance Directives Documents on File Type Date Recorded Patient Reinforcer Expl anation Healthcare Directive 08/18/2023 024 * Full Code (Latest Code Status on File) Date Activated Date Inactivated Comments 08/21/2023 10:15 AM 08/22/2023 1:31 PM Question Answer Comments Code Status Discussion: Other * Full Code Date Activated Date Inactivated Comments 04/27/2023 8:16 AM 04/27/2023 12:31 PM Question Answer Comments Code Status Discussion: Reviewed Preferences Care Teams Lockstitch Machine Operator Relationship Specialty Start Date End Date Earnest Wyatt MD [address] [place] [address] PCP - General Family Practice 04/13/23
== END 2023-11-27 11:29 | disposition home or self-care (01) ==
PROVIDERS: PCP Family Medicine; Visit Provider Family Medicine
DX: Z01.818 Encounter for other preprocedural examination (principal); E11.69 Type 2 diabetes mellitus with other specified complication; I10 Essential (primary) hypertension; R79.89 Other specified abnormal findings of blood chemistry; I48.91 Unspecified atrial fibrillation; Z79.01 Long term (current) use of anticoagulants
CPT/HCPCS: 80053; 82043; 82570

== ENCOUNTER 2023-12-01 12:33 | Outpatient (CLI) | payer OTHER, SELFPAY ==
--- OUTSIDE RECORDS SUMMARY | 2023-12-01 12:36 | XMS_ITS | Clinical Summary ---
Author Organization [facility] Address [address], [place] [address] Care Team Providers Care Customer Assistance Associate Name Role Phone Found, No Pcp MD Primary Care Provider Unavailab le Source Comments You are receiving this document as you are listed as the primary care provider,follow-up provider, or the patient has been referred to you for consultation.This is in compliance with the Medicare and[facility] System[facility] EHR Incentive Program,which states Providers who transition [...] Comments Blood Pressure 162/102 05/27/2014 2:05 PM COLLEGE ASSOCIATE Pulse - - Temperature 36.8 ??C (98.2 ??F) 02/04/2016 8:32 AM CD T Respiratory Rate - - Oxygen Saturation - - Inhaled Oxygen Concentration - - Weight 133.4 kg (294 lb) 05/27/2014 2:05 PM COLLEGE ASSOCIATE Height 180.3 cm (5' 11) 05/27/2014 2:05 PM COLLEGE ASSOCIATE Body Mass Index 41 05/27/2014 2:05 PM COLLEGE ASSOCIATE Plan of Treatment Health Maintenance Due [...] age to complete this topic Care Teams Customer Assistance Associate Relationship Specialty Start Date End Date Found, No Pcp, [address] [place] [address] PCP - General 03/01/18
--- OUTSIDE RECORDS SUMMARY | 2023-12-01 12:36 | XMS_ITS | Clinical Summary ---
Author Organization [facility] Address [place], [place] [address] Care Team Providers Care Laborer Vineyard Name Role Phone Earnest Wyatt MD Primary Care Provider [phone] Allergies No known active allergies Medications Medication [...] CDT - 09/06/2023 11:04 PM CDT Emergency [facility] Emergency Department [address] [place] [address] Parker Davidson MD Ground-level fall (Primary Dx); Abrasion of head, initial encounter; Alcoholic intoxication without complication (HC) Discharge Disposition: Home Self Care 09/05/2023 Refill [facility] [address] [place] [phone] Fredy Hermosillo MD Refill Request (Sotalol) from Last 3 Months Social History Tobacco [...] Description 01/24/2024 2:30 PM CDT Office Visit [facility] [address] [place] [address] Fredy Hermosillo MD [address] [facility] [address] [place], [place] [phone] Health Maintenance Due Date Last Done Comments [...] None Seen /HPF 09/06/2023 10:58 PM CDT [facility] WBC 0-2 0-2, 3-5, None Seen /HPF 09/06/2023 10:58 PM CDT [facility] BACTERIA None Seen None Seen, Rare, Few Bacteria/ HPF 09/06/2023 10:58 PM CDT [facility] EPITHELIAL CELLS None Seen None Seen, Few Epi/HPF 09/06/2023 10:58 PM CDT [facility] HYALINE CASTS 0-2 0-2, 3-5 /LPF 09/06/2023 10:58 PM CDT [facility] Urine URINE SPECIMEN / Unknown Non-Blood / Unknown 09/06/2023 10:24 PM CDT 09/06/2023 10:29 PM CDT Parker Davidson MD URINE [facility] [address] [place] [address], * (ABNORMAL) UA W/ SEDIMENT EXAM REFLEXED PER CRITERIA (09/06/2023 10:24 PM CDT) COLOR Yellow Yellow Color 09/06/2023 10:58 PM CDT [facility] CLARITY Clear Clear Clarity 09/06/2023 10:58 PM CDT [facility] SPECIFIC GRAVITY,URINE 1.020 1.010, 1.015, 1.020, 1.025 09/06/2023 10:58 PM CDT [facility] PH,URINE 5.5 6.0, 7.0, 8.0, 5.5, 6.5, 7.5, 8.5 09/06/2023 10:58 PM CDT [facility] UROBILINOGEN, QUALITATIVE Normal Normal EU/dl 09/06/2023 10:58 PM CDT [facility] PROTEIN, URINE Negative Negative mg/dL 09/06/2023 10:58 PM CDT [facility] GLUCOSE, URINE 250(A) Negative mg/dL 09/06/2023 10:58 PM CDT [facility] KETONES,URINE Trace(A) Negative mg/dL 09/06/2023 10:58 PM CDT [facility] BILIRUBIN,URI NE Negative Negative 09/06/2023 10:58 PM CDT [facility] OCCULT BLOOD,URINE Trace(A) Negative 09/06/2023 10:58 PM CDT [facility] NITRITE Negative Negative 09/06/2023 10:58 PM CDT [facility] LEUKOCYTE ESTERASE Negative Negative 09/06/2023 10:58 PM CDT [facility] Urine URINE SPECIMEN / Unknown Non-Blood / Unknown 09/06/2023 10:24 PM CDT 09/06/2023 10:29 PM CDT Parker Davidson MD [facility]INE [facility] [address] [place] [address], * (ABNORMAL) ETHANOL SERUM OR PLASMA (09/06/2023 10:06 PM CDT) ETHANOL 0.239(H) <0.010 g/dL 09/06/2023 10:34 PM CDT [facility] Blood BLOOD SPECIMEN / Unknown Butterfly / Unknown 09/06/2023 10:06 PM CDT 09/06/2023 10:10 PM CDT Parker Davidson MD VACCINATOR RY [facility] [address] [place] [address], * CT SPINE CERVICAL WO (09/06/2023 9:40 [...] PM (Electronically Signed) Procedure Note Reyes Tom, DO - 09/06/2023 For Patients: As a [...] PM CDT Parker AREVALO Performing Organization Address City/[facility]/ZIP Co de Phone Number [facility] [address] [place] [address], * EXTRA TUBE BLUE (09/06/2023 9:16 PM CDT) Blood BLOOD SPECIMEN / Unknown Non-Lab Venipuncture / Unknown 09/06/2023 9:16 PM CDT 09/06/2023 9:17 PM CDT Parker AREVALO Performing Organization Address City/[facility] Co de Phone Number [facility] [address] [place] [address], * MAGNESIUM (09/06/2023 9:09 PM CDT) MAGNESIUM 2.0 1.6 - 2.4 mg/dL 09/06/2023 9:42 PM CDT [facility] Blood BLOOD SPECIMEN / Unknown Butterfly / Unknown 09/06/2023 9:09 PM CDT 09/06/2023 9:14 PM CDT Parker Davidson MD VACCINATOR RY Performing Organization Address [facility] Co de Phone Number [facility] [address] [place] [address], * (ABNORMAL) BASIC METABOLIC PANEL (09/06/2023 9:09 PM CDT) SODIUM 143 136 - 145 mmol/L 09/06/2023 9:42 PM CDT [facility] POTASSIUM 3.9 3.5 - 5.1 mmol/L 09/06/2023 9:42 PM CDT [facility] CHLORIDE 106 98 - 107 mmol/L 09/06/2023 9:42 PM CDT [facility] CO2,TOTAL 26 22 - 29 mmol/L 09/06/2023 9:42 PM CDT [facility] ANION GAP 11 5 - 18 09/06/2023 9:42 PM CDT [facility] GLUCOSE 147(H) 70 - 99 mg/dL 09/06/2023 9:42 PM CDT [facility] CALCIUM 8.9 8.8 - 10.2 mg/dL 09/06/2023 9:42 PM CDT [facility] BUN 28(H) 8 - 23 mg/dL 09/06/2023 9:42 PM CDT [facility] CREATININE 1.02 0.70 - 1.20 mg/dL 09/06/2023 9:42 PM CDT [facility] BUN/CREAT RATIO 27(H) 10 - 20 9:42 PM CDT [facility] eGFR 81(L) >90 mL/min/1.7 3m2 09/06/2023 9:42 PM CDT [facility] Comment:As of 2021, eG FR is calculated by the CKD-EPI creatinine equation without race adjustment. ??eGFR can be influenced by muscle mass, exercise, and diet. ??The reported eGFR is an estimation only and is only applicable if the renal function is stable. Blood BLOOD SPECIMEN / Unknown Butterfly / Unknown 09/06/2023 9:09 PM CDT 09/06/2023 9:14 PM CDT Parker Davidson MD VACCINATOR RY [facility] [address] [place] [address], [place] * CBC W PLT NO DIFF (09/06/2023 9:08 PM CDT) [facility] WHITE BLOOD COUNT 9.1 4.5 - 11.0 thou/cu mm 09/06/2023 9:20 PM CDT [facility] RED BLOOD COUNT 4.77 4.30 - 5.90 mil/cu mm 09/06/2023 9:20 PM CDT [facility] HEMOGLOBIN 14.2 13.5 - 17.5 g/dL 09/06/2023 9:20 PM CDT [facility] HEMATOCRIT 40.8 37.0 - 53.0 % 09/06/2023 9:20 PM CDT [facility] MCV 86 80 - 100 fL 09/06/2023 9:20 PM CDT [facility] MCH 29.8 26.0 - 34.0 pg 09/06/2023 9:20 PM CDT [facility] MCHC 34.8 32.0 - 36.0 g/dL 09/06/2023 9:20 PM CDT [facility] RDW 13.8 11.5 - 15.5 % 09/06/2023 9:20 PM CDT [facility] PLATELET COUNT 198 140 - 440 thou/cu mm 09/06/2023 9:20 PM CDT [facility] MPV 9.4 6.5 - 11.0 fL 09/06/2023 9:20 PM CDT [facility] NRBC 0.0 % 09/06/2023 9:20 PM CDT [facility] ABS NRBC 0.0 thou /cu mm 09/06/2023 9:20 PM CDT [facility] Blood BLOOD SPECIMEN / Unknown Butterfly / Unknown 09/06/2023 9:08 PM CDT 09/06/2023 9:14 PM CDT Parker Davidson MD HEMATOL OGY [facility] [address] [place] [phone], * EKG 12 LEAD (09/06/2023 8:59 PM CDT) Interpretation Sinus rhythm with Premature atrial complexes Low voltage QRS Borderline ECG BEYOND NOW Ventricular Rate 90 BPM BEYOND NOW Atrial Rate 90 BPM BEYOND NOW P-R Interval 190 ms BEYOND NOW QRS Duration 88 ms BEYOND NOW QT 372 ms BEYOND NOW QTc 455 ms BEYOND NOW P [place] 91 degrees BEYOND NOW R [place] 29 degrees BEYOND NOW T [place] 38 degrees BEYOND NOW 09/06/2023 8:59 PM CDT 09/06/2023 11:14 PM CDT Parker Davidson MD EKG ORD BEYOND NOW [place], [place] * LIPID PANEL (08/07/2023 10:16 AM CDT) CHOLESTEROL,TOTAL 160 100 - 199 mg/dL 08/07/2023 2:[address] [facility] Comment: Cholesterol, Total Reference Ranges Desirable <200 mg/dL Borderline 200-239 mg/dL High >=240 mg/dL TRIGLYCERIDES 109 <150 mg/dL 08/07/2023 2:[address] [facility] HDL CHOLESTEROL 59 >40 mg/dL 2:52 PM CDT [facility] NON-HDL CHOLESTEROL 101 <145 mg/dl 08/07/2023 2:[address] [facility] CHOL/HDL RATIO 2.71 <4.50 08/07/2023 2:[address] [facility] LDL CHOLESTEROL 79 <=130 mg/dL 08/07/2023 2:[address] [facility] VLDL CHOLESTEROL 22 <=30 mg/dL 08/07/2023 2:[address] [facility] [employer] PROVIDER ORDERED STATUS RANDOM 08/07/2023 2:52 PM CDT [facility] Blood BLOOD SPECIMEN / Unknown Venipuncture / Unknown 08/07/2023 10:16 AM CDT 08/07/2023 10:18 AM CDT Rocael Baker MD [facility] [address] [place] [address], from Last 3 Months or Most Recently Relevant to Health Maintenance Advance Directives Documents on File Type Date Recorded Patient Marketing Segment Manager Expl anation Healthcare Directive 08/18/2023 024 * Full Code (Latest Code Status on File) Date Activated Date Inactivated Comments 08/21/2023 10:15 AM 08/22/2023 1:31 PM Question Answer Comments Code Status Discussion: Other * Full Code Date Activated Date Inactivated Comments 04/27/2023 8:16 AM 04/27/2023 12:31 PM Question Answer Comments Code Status Discussion: Reviewed Preferences Care Teams Laborer Vineyard Relationship Specialty Start Date End Date Earnest Wyatt MD [address] [place] [address] PCP - General Family Practice 04/13/23
== END 2023-12-01 12:34 | disposition home or self-care (01) ==
LOC: CT 12:34
PROVIDERS: PCP Family Medicine; Visit Provider Orthopaedic Surgery Sports Medicine
DX: M19.012 Primary osteoarthritis, left shoulder (principal); Z01.818 Encounter for other preprocedural examination
CPT/HCPCS: 73200

== ENCOUNTER 2023-12-07 08:26 | Day surgery (SDC) | payer OTHER, SELFPAY ==
[2023-12-07] VITALS (23 sets, daily range): BP systolic 110–188; BP diastolic 69–94; PULSE 55–88; RESP 14–18; TEMP 36.1–36.9; O2SAT 93–100; BMI 40.0
--- OUTSIDE RECORDS SUMMARY | 2023-12-07 08:30 | XMS_ITS | Clinical Summary ---
Author Organization [facility] Address [address] [address] Care Team Providers Care Milk Bottling Machine Operator Name Role Phone Found, No Pcp MD Primary Care Provider Unavailab le Source Comments You are receiving this document as you are listed as the primary care provider,follow-up provider, or the patient has been referred to you for consultation.This is in compliance with the Medicare and[facility] EHR Incentive Program,which states Providers who transition [...] Comments Blood Pressure 162/102 05/27/2014 2:05 PM DEVELOPMENT DISABILITY SPECIALIST Pulse - - Temperature 36.8 ??C (98.2 ??F) 02/04/2016 8:32 AM CD T Respiratory Rate - - Oxygen Saturation - - Inhaled Oxygen Concentration - - Weight 133.4 kg (294 lb) 05/27/2014 2:05 PM DEVELOPMENT DISABILITY SPECIALIST Height 180.3 cm (5' 11) 05/27/2014 2:05 PM DEVELOPMENT DISABILITY SPECIALIST Body Mass Index 41 05/27/2014 2:05 PM DEVELOPMENT DISABILITY SPECIALIST Plan of Treatment Health Maintenance Due Date [...] age to complete this topic Care Teams Milk Bottling Machine Operator Relationship Specialty Start Date End Date Found, No Pcp, [address] [place] [address] PCP - General 03/01/18
--- OUTSIDE RECORDS SUMMARY | 2023-12-07 08:30 | XMS_ITS | Clinical Summary ---
Author Organization [facility] Address [place], [place] [address] Care Team Providers Care Video Producer Name Role Phone Earnest Wyatt MD Primary Care Provider Allergies No known active allergies Medications Medication [...] - 09/06/2023 11:04 PM CDT Emergency [facility] Emergency Department [address] [place] [address] Parker Davidson MD Ground-level fall (Primary Dx); Abrasion of head, initial encounter; Alcoholic intoxication without complication (HC) Discharge Disposition: Home Self Care from Last 3 Months Social History Tobacco [...] Description 01/24/2024 2:30 PM CDT Office Visit [facility] [address] [facility] [address] [place] [address] Fredy Hermosillo MD [address] [place], [place] [id number] Health Maintenance Due Date Last Done Comments [...] 65+ 2021 COVID-19 vaccine series ( season) 2023 04/20/2021, 07/17/2020, 06/19/2020 Influenza for age 65+ [...] None Seen /HPF 09/06/2023 10:58 PM CDT [facility] WBC 0-2 0-2, 3-5, None Seen /HPF 09/06/2023 10:58 PM CDT [facility] BACTERIA None Seen None Seen, Rare, Few Bacteria/ HPF 09/06/2023 10:58 PM CDT [facility] EPITHELIAL CELLS None Seen None Seen, Few Epi/HPF 09/06/2023 10:58 PM CDT [facility] HYALINE CASTS 0-2 0-2, 3-5 /LPF 09/06/2023 10:58 PM CDT [facility] Urine URINE SPECIMEN / Unknown Non-Blood / Unknown 09/06/2023 10:24 PM CDT 09/06/2023 10:29 PM CDT Parker Davidson MD URINE [facility] [address] [place] [address], * (ABNORMAL) UA W/ SEDIMENT EXAM REFLEXED PER CRITERIA (09/06/2023 10:24 PM CDT) COLOR Yellow Yellow Color 09/06/2023 10:58 PM CDT [facility] CLARITY Clear Clear Clarity 09/06/2023 10:58 PM CDT [facility] SPECIFIC GRAVITY,URINE 1.020 1.010, 1.015, 1.020, 1.025 09/06/2023 10:58 PM CDT [facility] PH,URINE 5.5 6.0, 7.0, 8.0, 5.5, 6.5, 7.5, 8.5 09/06/2023 10:58 PM CDT [facility] UROBILINOGEN, QUALITATIVE Normal Normal EU/dl 09/06/2023 10:58 PM CDT [facility] PROTEIN, URINE Negative Negative mg/dL 09/06/2023 10:58 PM CDT [facility] GLUCOSE, URINE 250(A) Negative mg/dL 09/06/2023 10:58 PM CDT [facility] KETONES,URINE Trace(A) Negative mg/dL 09/06/2023 10:58 PM CDT [facility] BILIRUBIN,URI NE Negative Negative 09/06/2023 10:58 PM CDT [facility] OCCULT BLOOD,URINE Trace(A) Negative 09/06/2023 10:58 PM CDT [facility] NITRITE Negative Negative 09/06/2023 10:58 PM CDT [facility] LEUKOCYTE ESTERASE Negative Negative 09/06/2023 10:58 PM CDT [facility] Urine URINE SPECIMEN / Unknown Non-Blood / Unknown 09/06/2023 10:24 PM CDT 09/06/2023 10:29 PM CDT Parker Davidson MD URINE [facility] [address] [place] [address], * (ABNORMAL) ETHANOL SERUM OR PLASMA (09/06/2023 10:06 PM CDT) ETHANOL 0.239(H) <0.010 g/dL 09/06/2023 10:34 PM CDT [facility] Blood BLOOD SPECIMEN / Unknown Butterfly / Unknown 09/06/2023 10:06 PM CDT 09/06/2023 10:10 PM CDT Parker Davidson MD CUSTOMER ENERGY SPECIALIST R[facility] [address] [place] [address], * CT SPINE CERVICAL WO (09/06/2023 9:40 [...] PM CDT Parker AREVALO Performing Organization Address City/[facility] Co de Phone Number [facility] [address] [place] [address], [place] * EXTRA TUBE BLUE (09/06/2023 9:16 PM CDT) Blood BLOOD SPECIMEN / Unknown Non-Lab Venipuncture / Unknown 09/06/2023 9:16 PM CDT 09/06/2023 9:17 PM CDT Parker AREVALO Performing Organization Address [facility] Co de Phone Number [facility] [address] [place] [address], [place] * MAGNESIUM (09/06/2023 9:09 PM CDT) MAGNESIUM 2.0 1.6 - 2.4 mg/dL 09/06/2023 9:42 PM CDT [facility] Blood BLOOD SPECIMEN / Unknown Butterfly / Unknown 09/06/2023 9:09 PM CDT 09/06/2023 9:14 PM CDT Parker Davidson MD CUSTOMER ENERGY SPECIALIST RY Performing Organization Address [facility] Co de Phone Number [facility] [address] [place] [address], [place] * (ABNORMAL) BASIC METABOLIC PANEL (09/06/2023 9:09 PM CDT) SODIUM 143 136 - 145 mmol/L 09/06/2023 9:42 PM CDT [facility] POTASSIUM 3.9 3.5 - 5.1 mmol/L 09/06/2023 9:42 PM CDT [facility] CHLORIDE 106 98 - 107 mmol/L 09/06/2023 9:42 PM CDT [facility] CO2,TOTAL 26 22 - 29 mmol/L 09/06/2023 9:42 PM CDT [facility] ANION GAP 11 5 - 18 09/06/2023 9:42 PM CDT [facility] GLUCOSE 147(H) 70 - 99 mg/dL 09/06/2023 9:42 PM CDT [facility] CALCIUM 8.9 8.8 - 10.2 mg/dL 09/06/2023 9:42 PM CDT [facility] BUN 28(H) 8 - 23 mg/dL 09/06/2023 9:42 PM CDT [facility] CREATININE 1.02 0.70 - 1.20 mg/dL 09/06/2023 9:42 PM CDT [facility] BUN/CREAT RATIO 27(H) 10 - 20 9:42 PM CDT [facility] eGFR 81(L) >90 mL/min/1.7 3m2 09/06/2023 9:42 PM CDT [facility] Comment:As of 2021, eG FR is calculated by the CKD-EPI creatinine equation without race adjustment. ??eGFR can be influenced by muscle mass, exercise, and diet. ??The reported eGFR is an estimation only and is only applicable if the renal function is stable. Blood BLOOD SPECIMEN / Unknown Butterfly / Unknown 09/06/2023 9:09 PM CDT 09/06/2023 9:14 PM CDT Parker Davidson MD CUSTOMER ENERGY SPECIALIST RY [facility] [address] [place] [address], * CBC W PLT NO DIFF (09/06/2023 9:08 PM CDT) WHITE BLOOD COUNT 9.1 4.5 - 11.0 thou/cu mm 09/06/2023 9:20 PM CDT [facility] RED BLOOD COUNT 4.77 4.30 - 5.90 mil/cu mm 09/06/2023 9:20 PM CDT [facility] HEMOGLOBIN 14.2 13.5 - 17.5 g/dL 09/06/2023 9:20 PM CDT [facility] HEMATOCRIT 40.8 37.0 - 53.0 % 09/06/2023 9:20 PM CDT [facility] MCV 86 80 - 100 fL 09/06/2023 9:20 PM CDT [facility] MCH 29.8 26.0 - 34.0 pg 09/06/2023 9:20 PM CDT [facility] MCHC 34.8 32.0 - 36.0 g/dL 09/06/2023 9:20 PM CDT [facility] RDW 13.8 11.5 - 15.5 % 09/06/2023 9:20 PM CDT [facility] PLATELET COUNT 198 140 - 440 thou/cu mm 09/06/2023 9:20 PM CDT [facility] MPV 9.4 6.5 - 11.0 fL 09/06/2023 9:20 PM CDT [facility] NRBC 0.0 % 09/06/2023 9:20 PM CDT [facility] ABS NRBC 0.0 thou /cu mm 09/06/2023 9:20 PM CDT [facility] Blood BLOOD SPECIMEN / Unknown Butterfly / Unknown 09/06/2023 9:08 PM CDT 09/06/2023 9:14 PM CDT Parker Davidson MD HEMATOL OGY [facility] [address] [place] [address], * EKG 12 LEAD (09/06/2023 8:59 PM CDT) Interpretation Sinus rhythm with Premature atrial complexes Low voltage QRS Borderline ECG BEYOND NOW Ventricular Rate 90 BPM BEYOND NOW Atrial Rate 90 BPM BEYOND NOW P-R Interval 190 ms BEYOND NOW QRS Duration 88 ms BEYOND NOW QT 372 ms BEYOND NOW QTc 455 ms BEYOND NOW P Freeborn 91 degrees BEYOND NOW R Freeborn 29 degrees BEYOND NOW T Freeborn 38 degrees BEYOND NOW 09/06/2023 8:59 PM CDT 09/06/2023 11:14 PM CDT Parker Davidson MD EKG ORD Performing Organization Address City/[facility]/ZIP Co de Phone Number BEYOND NOW [place], [place] * LIPID PANEL (08/07/2023 10:16 AM CDT) CHOLESTEROL,TOTAL 160 100 - 199 mg/dL 08/07/2023 2:52 PM CDT [facility] [employer] Comment: Cholesterol, Total Reference Ranges Desirable <200 mg/dL Borderline 200-239 mg/dL High >=240 mg/dL TRIGLYCERIDES 109 <150 mg/dL 08/07/2023 2:52 PM CDT [facility] [facility] HDL CHOLESTEROL 59 >40 mg/dL 2:52 PM CDT [facility] NON-HDL CHOLESTEROL 101 <145 mg/dl 08/07/2023 2:52 PM CDT [facility] CHOL/HDL RATIO 2.71 <4.50 08/07/2023 2:52 PM CDT [facility] LDL CHOLESTEROL 79 <=130 mg/dL 08/07/2023 2:52 PM CDT [facility] VLDL CHOLESTEROL 22 <=30 mg/dL 08/07/2023 2:52 PM CDT [facility] PROVIDER ORDERED STATUS RANDOM 08/07/2023 2:52 PM CDT [facility] Blood BLOOD SPECIMEN / Unknown Venipuncture / Unknown 08/07/2023 10:16 AM CDT 08/07/2023 10:18 AM CDT Rocael Baker MD CHEMISTRY [facility] [address] [place] [address], from Last 3 Months or Most Recently Relevant to Health Maintenance Advance Directives Documents on File Type Date Recorded Patient Shaper Operator Expl anation Healthcare Directive 08/18/2023 024 * Full Code (Latest Code Status on File) Date Activated Date Inactivated Comments 08/21/2023 10:15 AM 08/22/2023 1:31 PM Question Answer Comments Code Status Discussion: Other * Full Code Date Activated Date Inactivated Comments 04/27/2023 8:16 AM 04/27/2023 12:31 PM Question Answer Comments Code Status Discussion: Reviewed Preferences Care Teams Video Producer Relationship Specialty Start Date End Date Earnest Wyatt MD [address] [place] [address] PCP - General Family Practice 04/13/23
[2023-12-07] MEDS: LACTATED RINGERS 1000 ML 1,000 ML 100 ML IV ×2 (09:30→12:25)
[2023-12-07] MEDS: SODIUM CHLORIDE 0.9 % (FLUSH) 10 ML SYRINGE IVF (09:30)
[2023-12-07] MEDS: ACETAMINOPHEN 500 MG TABLET 1000 MG PO ×3 (09:30→22:37)
[2023-12-07] MEDS: CELECOXIB 200 MG CAPSULE PO (09:30)
[2023-12-07] MEDS: OXYCODONE (CR) 10 MG TAB.ER.12H PO (09:30)
[2023-12-07] MEDS: fentaNYL 100 MCG/2 ML inj IVP (10:00)
[2023-12-07] MEDS: MIDAZOLAM HCL 1 MG/ML inj IVP (10:00)
--- NOTE | 2023-12-07 10:13 | SUR.PREOP ---
TIME?OUT:?1000 PT/RN/MDA?VERIFICATION?OF?SURGICAL?SITE,?PROCEDURE,?AND?CONSENT OBTAINED?PRIOR?TO?INVASIVE?PROCEDURE.
[2023-12-07] MEDS: CEFAZOLIN 1 GM inj 3 GM IVP (10:25)
[2023-12-07] MEDS: TRANEXAMIC ACID 100 MG/ML INJ 1000 MG IV (10:30)
--- NOTE | 2023-12-07 10:33 | P.NB_ITS ---
Nerve Block Nerve Block Time Seen by Provider: 10:00 Date Seen: 12/07/23 Type of block requested by surgeon for post-operative analgesia: supraclavicular Side: left Time out performed: Yes Verification of patient name: Yes Verification of date of : Yes Site marking: site marked Name of person performing procedure: William Continuous monitoring Was continuous monitoring of O2 sat, B/P, cardiac sonographer, recorded every 15 minutes?: Yes Procedure Checklist: sterile prep, needles and gloves Ultrasound guided. Images saved: Yes Medications given in 5ml increments after negative aspiration: Ropivicaine %: 0.5 mL: 20 Needle gauge: 22 Decadron (mg): 10 Precedex (mcg): 25 Patient tolerated procedure well: Yes Block Charges Block Charge (with Pro Fee): Brachial Plexus Use of Ultrasound Machine for Block: Yes- US Guidance/pain block
--- NOTE | 2023-12-07 10:34 | W.ANESCHARGE ---
Anesthesia Charges Start Date/Time Anesthesia Start Date: 12/07/23 Anesthesia Start Time: 10:12 Stop Date/Time Anesthesia Stop Date: 12/07/23 Anesthesia Stop Time: 12:59
--- NOTE | 2023-12-07 12:16 | CRLHL7_ITS ---
For Patients: As a result of the Cures Act, medical imaging exams and procedure reports are released immediately into your electronic medical record. You may view this report before your referring provider. If you have questions, please contact your health care provider. Indication: Postop Technique: Two views left shoulder Findings/Impression: Hardware from a total shoulder arthroplasty is in satisfactory position. Bone alignment is normal. No sign of acute fracture. Postop changes are within normal limits. Dictated by Massimo Little MD @ 12/07/2023 2:36:49 PM (Electronically Signed)
--- NOTE | 2023-12-07 12:24 | P.ORPRC_ITS ---
Procedure Note Date of procedure: 12/07/23 Procedure: PREOPERATIVE DIAGNOSIS: Left shoulder rotator cuff tear arthropathy POSTOPERATIVE DIAGNOSIS: Left shoulder rotator cuff tear arthropathy NAME OF OPERATION: Left upper extremity reverse shoulder arthroplasty, biceps tenodesis SURGEON: Rock Durham MD SALESPERSON [employer]IES: Shanti Murillo PA-C, MARY Vernon ANESTHESIA: General endotracheal ESTIMATED BLOOD LOSS: 50 mL COMPLICATIONS: None SPECIMENS: None DRAINS: None PREOPERATIVE ANTIBIOTICS: Ancef 3 grams IMPLANTS: 1. Tornier 29 mm x 40 mm baseplate 2. 39 mm standard glenosphere 3. 6B humeral stem 4. High eccentric +0 humeral tray 5. 39 mm +6 polyethylene INDICATIONS: The patient is a 68-year-old with a longstanding history of severe, unrelenting left shoulder pain secondary to rotator cuff tear arthropathy. Despite appropriate nonoperative management, including activity modification, anti-inflammatories, [id number] pain medication, physical therapy, and injections they continue to have pain and disability. Operative intervention was offered. The risks, benefits and expected outcomes were discussed in detail. These included but were not limited to: Infection, bleeding, injury to blood vessel or nerve, venous thromboembolism. All questions were answered to their satisfaction. Use of an primary teaching assistant was necessary throughout the case for patient positioning and safety, soft tissue retraction, and closure. PROCEDURE: General anesthesia was administered. The patient was placed in the lazy beach chair position on the operating room table. The left upper extremity was prepped and draped in the usual sterile fashion. A standard deltopectoral incision was made. Subcutaneous dissection was taken with electrocautery to the deltopectoral interval. The cephalic vein was mobilized, lateral branches were cauterized. The vein was taken medially with the pectoralis. We bluntly entered the deltopectoral interval. We freed up the deltoid. The upper 1/3 of the insertion of the pectoralis was divided with cautery. The static retractor was placed. The clavipectoral fascia and CA ligament were divided. The circumflex vessels were controlled with electrocautery. The biceps was dissected out of the bicipital groove, was tagged with a #2 FiberWire suture and divided proximally. Two fiberWire sutures were placed in the subscapularis. The subscap was subperiosteally elevated off of the lesser tuberosity. The humeral head was delivered into the wound. The intramedullary humeral cutting guide was placed. We made the cut at the anatomic neck, in 30? of retroversion. Humeral sounds were used to assess the diameter of the canal. The broach was placed and had good rotational stability. The calcar reamer was used and the protective base plate cover was placed. Attention was then turned to the glenoid. Hohmann retractors were placed posteriorly. The labrum and biceps stump were sharply debrided. The origin of the inferior glenohumeral ligaments were subperiosteally released off of the glenoid. The drill guide was placed. The guide pin was placed in 0? of cephalic tilt. The reamer was used to bleeding bone. The central drill was used x2. The tap was used. The standard base plate was placed. This had excellent purchase. Locking screws x 2 were placed. The glenosphere was placed, the set screw was tightened. Attention then returned to the humerus. We placed a high eccentric standard base plate and standard poly. We reduced the shoulder and took it through a range of motion. It was found to be stable with appropriate soft tissue tension. Trial humeral components were removed. The biceps was tenodesed in the bicipital groove with drill holes and our previously placed FiberWire suture. We placed #2 FiberWire sutures in the lesser tuberosity for subsequent subscap repair. We assembled the humeral component on the back table. We placed it in the center of our subscapularis repair sutures and tapped it down to our humeral cut. This had excellent purchase. The shoulder was reduced and again was found to be stable with appropriate soft tissue tension. We did a 3 min dilute Betadine solution soak. We irrigated the wound with 3 L of normal saline via pulse lavage. We repaired the subscapularis to the lesser tuberosity with our previously placed FiberWire sutures. The deltopectoral interval was loosely reapproximated with an 0 Vicryl in an interrupted [id number] fashion. Subcutaneous tissues were closed with the 2-0 Vicryl and a running 3-0 Monocryl suture. The skin was sealed with glue. A dry dressing and sling were applied. Sponge and needle counts were correct x2. The patient tolerated the procedure well, there were no apparent complications. They were awakened and extubated in the operating room, taken to the postanesthesia care unit in satisfactory condition. PLAN: The patient will be mobilized with physical therapy. The sling will be used for 6 weeks postoperatively. Active range of motion in forward flexion and abduction as tolerates. No external rotation greater than 0? for 6 weeks postoperatively. They will be discharged to home once medically appropriate.
--- NOTE | 2023-12-07 12:59 | W.ANESCHARGE ---
Anesthesia Charges Start Date/Time Anesthesia Start Date: 12/07/23 Anesthesia Start Time: 10:12 Stop Date/Time Anesthesia Stop Date: 12/07/23 Anesthesia Stop Time: 12:59
--- NOTE | 2023-12-07 14:25 | P.IMCN_ITS ---
Date of Consult Patient: [facility] Patient Consult date: 12/07/23 Requesting Physician: Orthopedics Primary Care Provider: Earnest Wyatt MD Consult Narrative Reason for consult: Medical management of comorbidities Narrative: Saleem Marti is a 68 year old male who presented to the hospital today for an elective L total shoulder with Dr. Durham of Orthopedic Surgery. There were no surgical or anesthetic complications noted during procedure. Patient's H&P reviewed, PCP is Dr. Wyatt. Past medical history significant for: Atrial fibrillation (diagnosed in 02/02, st/p unsuccessful DCCV followed by successful ablation in September 2023, remains in sinus rhythm), anticoagulated on Eliquis; [id number] DM2 (most recent A1c 6.7), BMI of 40, COSME (not on CPAP), Essential hypertension. History of blood clots: No Postoperative plan: Home with in [place]. Review of Systems Status of ROS: Reports: 10 or more systems reviewed and unremarkable except as noted in History and below [facility] Medical History (Updated 12/07/23 @ 16:32 by Elen Longoria MD) Atrial fibrillation ?I48.91 - Unspecified atrial fibrillation (ICD-10) Hypercholesteremia ?E78.00 - Pure hypercholesterolemia, unspecified (ICD-10) Tobacco abuse ?Z72.0 - Tobacco use (ICD-10) Seborrheic dermatitis, unspecified ?L21.9 - Seborrheic dermatitis, unspecified (ICD-10) Diabetes mellitus ?E11.9 - Type 2 diabetes mellitus without complications (ICD-10) Knee pain, bilateral ?M25.561 - Pain in right knee (ICD-10) ?M25.562 - Pain in left knee (ICD-10) HTN, goal below 140/90 ?I10 - Essential (primary) hypertension (ICD-10) Dyspnea or other respiratory complaints Surgical History (Updated 12/07/23 @ 16:00 by Elen Longoria MD) S/p reverse total shoulder arthroplasty ?Z96.619 - Presence of unspecified artificial shoulder joint (ICD-10) 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) ?Z96.612 - Presence of left artificial shoulder joint (ICD-10) Injury of quadriceps tendon (07/06/17) ?S76.109A - Unspecified injury of unspecified quadriceps muscle, fascia and tendon, initial encounter (ICD-10) S/P right knee arthroscopy (01/05/18) ?Z98.890 - Other specified postprocedural states (ICD-10) Social History (Updated 11/22/23 @ 09:37 by Tierra Henry ~ [facility], [facility]) Narrative: -Eunice current smoker What is your current living situation?: I presently have a place to live In the past 12 months, utilities in danger of being shut off: no In past 12 months, lack of transportation kept you from medical appts, meetings, work, or getting things needed for daily living: no In the past 12 mos, have been you worried that your food would run out before you had money to buy more?: never true In the past 12 mos, the food you bought just didn't last and you didn't have money to buy more?: never true Smoking Status: Light tobacco smoker What tobacco products do you use: cigarettes Do you use any of these nicotine containing products: None Second hand tobacco smoke exposure: No How often do you have a drink containing alcohol: never How often do you have six or more drinks on one occasion: Never AUDIT-C Alcohol total score: 0 Non-prescribed substance use: denies use Caffeine: Yes (coffee) How often does anyone, including family, friends and others, physically hurt you : never How often does anyone, including family, friends and others, insult or talk down to you: never How often does anyone, including family, friends and others, threaten you with harm: never How often does anyone, including family, friends and others, scream or curse at you: never Little interest or pleasure in doing things: not at all Feeling down, depressed, or hopeless: not at all service: No Meds Home Medications and Allergies Home Medications ?Medication ?Instructions ?Recorded ?Confirmed ?Type sotalol 80 mg tablet mg PO 08/31/23 11/27/23 History lisinopril 10 1 tab PO DAILY 12/07/23 12/07/23 History mg-hydrochlorothiazide 12.5 mg tablet Allergies Allergy/AdvReac Type Severity Reaction Status Date / Time No Known Drug Allergies Allergy Verified 12/07/23 08:40 Exam Narrative: Exam Narrative: GEN: Alert and oriented, sitting up in bed, nontoxic HEENT: EOMIs bilaterally, no scleral icterus CV: RRR, No concerning murmurs R: No tachypnea, lungs clear bilaterally Skin: No concerning skin lesions or rashes on exposed skin Neuro: Nonfocal Psych: Appropriate Const: Vital Signs, click to edit/add: Vital Signs - 24 hr 12/07/23 09:39 12/07/23 10:00 12/07/23 10:05 Temperature 97.3 F L Pulse Rate 66 72 65 Respiratory Rate 16 16 16 Blood Pressure 123/73 136/93 H 118/87 Pulse Oximetry 97 100 100 Oxygen Delivery Me thod Room Air Nasal Cannula Nasal Cannula Oxygen Flow Rate 2 2 12/07/23 12:54 12/07/23 13:00 12/07/23 13:05 Temperature 97.8 F 97.6 F Pulse Rate 69 68 63 Respiratory Rate 18 14 16 Blood Pressure 139/70 122/83 133/94 H Pulse Oximetry 96 94 95 Oxygen Delivery Me thod Room Air Room Air Room Air Oxygen Flow Rate 12/07/23 13:10 12/07/23 13:15 12/07/23 13:20 Temperature 97.6 F Pulse Rate 64 67 67 Respiratory Rate 14 16 14 Blood Pressure 133/94 H 123/90 H 145/79 H Pulse Oximetry 95 95 96 Oxygen Delivery Me thod Room Air Room Air Room Air Oxygen Flow Rate 2 12/07/23 13:25 12/07/23 13:28 12/07/23 14:12 Temperature 97.5 F L 97.0 F L Pulse Rate 66 68 65 Respiratory Rate 16 16 18 Blood Pressure 139/84 145/88 H 146/75 H Pulse Oximetry 95 95 Oxygen Delivery Me thod Room Air Room Air Room Air Oxygen Flow Rate Assessment and Plan Assessment and plan (1) S/p reverse total shoulder arthroplasty: Problem comment: - 12/07/23, Dr. Durham Status: Acute (2) Chronic anticoagulation: Problem comment: - on Eliquis, restarting 12/08/23 Status: Acute (3) Atrial fibrillation: Problem comment: - s/p successful ablation 08/21/23, remains in SR - will f/u with PCP/Cardiology regarding d/c of his Sotalol (per Cardiology note, would have been able to stop this Status: Acute Plan - pain management per orthopedic surgery team - restart home Eliquis on 12/07 - continue home medications for comorbidities - anticipate routine postoperative course
[2023-12-07] MEDS: CEFAZOLIN 3 GM in 0.9 % SODIUM CHLORIDE Mini-bag 100 ML IVPB (16:50)
--- NOTE | 2023-12-07 19:28 | PC.NURSE ---
End of shift 1649-2045: Pt alert, oriented, and pleasant. Pt tolerating reg fluids/diet well. Pt L shoulder incision site is CDI. Pt bladder continent, used urinal. Denies CP/N/V/SOB/pain. Radial pulses strong, Pt states no feeling from wrist and up to his shoulder. Ice applied to site. Pt appears resting comfortably, at bedside, call light within reach.
[2023-12-07] MEDS: APIXABAN 5 MG TABLET PO (21:12)
[2023-12-07] MEDS: SENNOSIDES 1 TAB TABLET 2 TAB PO (21:12)
[2023-12-08] MEDS: CEFAZOLIN 3 GM in 0.9 % SODIUM CHLORIDE Mini-bag 100 ML IVPB (00:56)
[2023-12-08 02:53] VITALS: BP 146/91; PULSE 82; RESP 18; TEMP 36.7; O2SAT 96
[2023-12-08] MEDS: ACETAMINOPHEN 500 MG TABLET 1000 MG PO (04:56)
--- NOTE | 2023-12-08 05:20 | PC.NURSE ---
Shift Note: Pt is pleasant and cooperative. A&O. Left arm in sling, elevated on pillows, active ice in place. Pt able to move fingers on left hand, still numbness to left arm, pain 0-2/10, scheduled Tylenol given, pt declined PRN medication. Up 1 assist with a gait belt, denies dizziness. IS to 1999. Denies SOB, CP, and N/V. Pt's stayed the night, supportive.
[2023-12-08 06:29] LABS: Hematocrit 37.8 % (37.0-53.0); Hemoglobin* 12.6 gm/dL (13.5-17.5); Mean Corpuscular HGB Conc 33 gm/dL (32-36); Mean Corpuscular Hemoglobin 29 pg (26-34); Mean Corpuscular Volume 87 fL (80-100); Platelet Count* 184 K/uL (140-440); Red Blood Count 4.34 m/uL (4.30-5.90); White Blood Count* 15.11 K/uL (4.50-11.00)
[2023-12-08 06:42] LABS: Sodium* 134 mmol/L (135-149)
[2023-12-08 06:43] LABS: Slide Review Reflex No
[2023-12-08 06:45] LABS: Creatinine* 0.8 mg/dL (0.5-1.5); Est. Creatinine Clearance* 74.01; Estimated Glomerular Filt Rate 97 ml/min
[2023-12-08 06:46] LABS: Blood Urea Nitrogen* 26 mg/dL (7-30)
[2023-12-08 07:00] VITALS: BP 138/82; PULSE 92; RESP 20; TEMP 36.5; O2SAT 95
--- NOTE | 2023-12-08 07:29 | PM.ORPN ---
Subjective Subjective Time Seen by Provider: 07:30 Date Seen: 12/08/23 Principal diagnosis: Status post left reverse total shoulder arthroplasty Interval history: Zhang is comfortable this morning. He will be discharging today to home with his . Ortho Exam Narrative Exam Narrative: Alert and oriented x3. Patient is in no acute distress. Converses without labored breathing. Hearing is grossly intact. Ambulates with a normal gait. Examination of the left shoulder shows dressing is intact. No erythema or warmth or sign of infection. Able to flex and extend his wrist and flex and extend his fingers. No pain or tenderness left shoulder. Sling is in place. Mild soft tissue edema. Const Vital Signs, click to edit/add: Vital Signs - 24 hr 12/07/23 09:39 12/07/23 10:00 12/07/23 10:05 Temperature 97.3 F L Pulse Rate 66 72 65 Pulse Rate [Bilateral Radial] Respiratory Rate 16 16 16 Blood Pressure 123/73 136/93 H 118/87 Blood Pressure [Right Arm] Pulse Oximetry 97 100 100 Oxygen Delivery Method Room Air Nasal Cannula Nasal Cannula Oxygen Flow Rate 2 2 12/07/23 12:54 12/07/23 13:00 12/07/23 13:05 Temperature 97.8 F 97.6 F Pulse Rate 69 68 63 Pulse Rate [Bilateral Radial] Respiratory Rate 18 14 16 Blood Pressure 139/70 122/83 133/94 H Blood Pressure [Right Arm] Pulse Oximetry 96 94 95 Oxygen Delivery Method Room Air Room Air Room Air Oxygen Flow Rate 12/07/23 13:10 12/07/23 13:15 12/07/23 13:20 Temperature 97.6 F Pulse Rate 64 67 67 Pulse Rate [Bilateral Radial] Respiratory Rate 14 16 14 Blood Pressure 133/94 H 123/90 H 145/79 H Blood Pressure [Right Arm] Pulse Oximetry 95 95 96 Oxygen Delivery Method Room Air Room Air Room Air Oxygen Flow Rate 2 12/07/23 13:25 12/07/23 13:28 12/07/23 13:45 Temperature 97.5 F L 97.0 F L Pulse Rate 66 68 65 Pulse Rate [Bilateral Radial] Respiratory Rate 16 16 18 Blood Pressure 139/84 145/88 H 146/75 H Blood Pressure [Right Arm] Pulse Oximetry 95 95 Oxygen Delivery Method Room Air Room Air Room Air Oxygen Flow Rate 12/07/23 14:00 12/07/23 14:15 12/07/23 14:30 Temperature 96.9 F L 97.0 F L 97.0 F L Pulse Rate 62 57 L 55 L Pulse Rate [Bilateral Radial] Respiratory Rate 16 16 16 Blood Pressure 147/89 H 145/85 H 144/70 H Blood Pressure [Right Arm] Pulse Oximetry 93 95 94 Oxygen Delivery Method Oxygen Flow Rate 12/07/23 15:00 12/07/23 15:00 12/07/23 15:30 Temperature 97.2 F L Pulse Rate 58 L 66 Pulse Rate [Bilateral Radial] Respiratory Rate 16 Blood Pressure 145/69 H 152/74 H Blood Pressure [Right Arm] Pulse Oximetry 93 98 Oxygen Delivery Method Room Air Oxygen Flow Rate 12/07/23 16:00 12/07/23 17:00 12/07/23 18:00 Temperature 97.6 F 97.1 F L 97.9 F Pulse Rate 77 79 88 Pulse Rate [Bilateral Radial] Respiratory Rate 16 14 16 Blood Pressure 159/74 H 188/86 H 136/78 Blood Pressure [Right Arm] Pulse Oximetry 96 96 95 Oxygen Delivery Method Oxygen Flow Rate 12/07/23 19:00 12/07/23 20:00 12/07/23 23:00 Temperature 98.4 F 98.5 F Pulse Rate 78 80 Pulse Rate [Bilateral Radial] Respiratory Rate 18 18 18 Blood Pressure 122/76 132/78 Blood Pressure [Right Arm] Pulse Oximetry 96 97 97 Oxygen Delivery Method Room Air Room Air Room Air Oxygen Flow Rate 12/07/23 23:00 12/08/23 02:53 Temperature 98.3 F 98.1 F Pulse Rate Pulse Rate [Bilateral Radial] 82 Respiratory Rate 18 18 Blood Pressure Blood Pressure [Right Arm] 110/76 146/91 H Pulse Oximetry 97 96 Oxygen Delivery Method Room Air Room Air Oxygen Flow Rate Assessment and Plan Assessment and plan (1) S/p reverse total shoulder arthroplasty: Problem details: - 12/07/23, Dr. Durham Status: Acute Assessment and Plan: Plan for discharge is to home when they meet discharge criteria. Patient will wear the sling for 6 weeks post surgery. They can take it off for comfort and for exercises. Activity: no external rotation of the operative shoulder past 0? x 6 weeks. Forward flexion and abduction of the shoulder is allowed as tolerated. They will work on range of motion of the elbow, wrist, fingers once the block has wore off on the operative extremity. Patient will attend outpatient physical therapy for the operative shoulder . For discharge, oxycodone and Tylenol for pain. Do not drive while on narcotic pain medication. Drive only when safe to do so, when they have normal use/function of the upper extremity, this will likely take 6 weeks. Patient will minimize and discontinue the narcotic as soon as possible. Remove dressing in 1 week. Dressing is waterproof. May shower. Surgical glue covers the wound. Do not scrub the wound. Expect swelling and bruising about the shoulder and upper extremity. Use of ice/active ice without restriction. Notify Orthopedics if swelling is excessive. notify Orthopedics with any questions or concerns. [phone] Return to Orthopedic clinic next week for a wound check Return to clinic in [address] Durham.
[2023-12-08] MEDS: SENNOSIDES 1 TAB TABLET 2 TAB PO (07:59)
[2023-12-08] MEDS: lisinopriL 10 MG TABLET PO (07:59)
[2023-12-08] MEDS: OXYCODONE 5 MG TABLET PO (07:59)
[2023-12-08] MEDS: hydroCHLOROthiazide 12.5 MG CAPSULE PO (08:00)
[2023-12-08] MEDS: APIXABAN 5 MG TABLET PO (08:00)
--- NOTE | 2023-12-08 11:05 | REH.PT ---
Pt educated on safe stair ambulation technique. Able to demo ind stair amb with a SEC using step to gait pattern. Progressed to ind gait on level indoor surfaces without an AD. Demo's ind with all transfers STS. Goals met in PT.
== END 2023-12-08 10:35 | disposition home or self-care (01) ==
LOC: OR 08:28 → MEDSURG 08:30
PROVIDERS: PCP Family Medicine; Visit Provider Orthopaedic Surgery
PROC: 0RRJ0JZ Replacement of Right Shoulder Joint with Synthetic Substitute, Open Approach (ICD-10-PCS; CPT 23472; principal; 2023-12-07 10:00)
DX: M75.122 Complete rotator cuff tear or rupture of left shoulder, not specified as traumatic (principal); M19.012 Primary osteoarthritis, left shoulder; G89.18 Other acute postprocedural pain; I48.91 Unspecified atrial fibrillation; Z79.01 Long term (current) use of anticoagulants; I10 Essential (primary) hypertension; G47.33 Obstructive sleep apnea (adult) (pediatric); E11.9 Type 2 diabetes mellitus without complications; Z68.41 Body mass index [BMI] 40.0-44.9, adult; E66.9 Obesity, unspecified
CPT/HCPCS: 23472; 23430; 01638; 36415; 64415; 73030; 76942; 82565; 82962; 84132; 84295; 84520; 85027; 97110; 97165; 97535; A9270; C1713; C1776; J0690; J1100; J2250; J2371; J2405; J2704; J3010; J3490; J7120

== ENCOUNTER 2024-03-25 08:10 | Outpatient (CLI) | payer OTHER, SELFPAY | END 2024-03-25 08:11 | disposition home or self-care (01) | LOC: NFLDREF 03-26 05:20 | PROVIDERS: PCP Family Medicine; Referring Provider Family Medicine; Visit Provider Family Medicine | DX: I10 Essential (primary) hypertension (principal); E78.00 Pure hypercholesterolemia, unspecified; E11.69 Type 2 diabetes mellitus with other specified complication; R79.89 Other specified abnormal findings of blood chemistry; Z12.5 Encounter for screening for malignant neoplasm of prostate | CPT/HCPCS: 80053; 80061; G0103 ==

== ENCOUNTER 2024-04-02 09:45 | Outpatient (RCR) | payer OTHER, SELFPAY ==
--- NOTE | 2023-12-06 14:14 | OT.OPGNE2 ---
OT Outpatient General/Neuro Eval OT Outpatient General/Neuro Eval* Start: 12/06/23 13:58 Freq: Status: Active Protocol: Document 12/05/23 14:03 SMW (Rec: 12/06/23 14:11 SMW [id number]) E-signed By Nancy Haywood OT OT Outpatient Evaluation Details Type Type Eval Complexity Low Insurance Information Insurance Information Insurance Information [employer] Outpatient History/Precautions Current Condition Referring Provider Dr. 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 Assessment Assessment Assessment The patient is a pleasant 68 year old male referred to outpatient OT for TSA pre-op. His LTSA is scheduled for . The patient lives with his spouse in a multi-level [facility]. He complains of bilateral knee pain. He is wearing knee compression sleeves. He had a fall down the stairs on 09/06/23 resulting in need for left shoulder arthoplasty. His spouse was present during education session today. He was educated on one handed ADLS, post op exercises, sling management, positioning, icing and general post TSA information. Both patient and spouse asked pertinant questions. No further skilled OT warranted. Occupational Therapy Treatment Plan - OP Potential Rehabilitation Potential Excellent Set Goals Goals Set with Patient Yes Goals Goals Within one visit, the patient will.. 1. along with his spouse, verbalize understanding of one handed ADLs, post op exercises, sling management, icing and positioning. goal met. Certification Certification Statement I Certify That: Therapy Services Provided, Therapy Plan Established, Therapy Plan Reviewed Certification Information Clinic ID # [id number] Initial Certification Date 12/05/23 Provider Signature Required Yes Provider Signature Shows Agreement With POC & Medical Necessity Physician NPI Number Write NPI# Here Physician Comment/Change Comment or Changes Physician Signature & Date Requested Please Sign/Date Here
--- NOTE | 2023-12-25 12:18 | PT.OPE ---
PT [facility] Eval PT [facility] Outpatient Eval Start: 12/22/23 16:13 Freq: Status: Active Protocol: Document 12/22/23 16:13 THEO (Rec: 12/22/23 16:15 THEO [email or web address]) E-signed By Juan Haywood DPT, MS Physical Therapy Outpatient Evaluation Insurance Information Recert Due Date 03/21/24 Insurance Name Medicare B Medical Diagnosis Left reverse total shoulder arthroplasty Treating Diagnosis L shoulder and biceps pain, decreased L shoulder PROM and AROM, and R UE weakness Subjective Preferred Name Bill Subjective Pt presents to PT following L reverse total shoulder arthroplasty on 12/07/23 at [place] . Pain levels have improved over the past week with mod levels of pain the first week post-op. Pt describes long hx of L shoulder pain after years of working in [employer] with a chronic RC tear. Wearing his sling as prescribed. His attended today?s session and has been helping with daily activities. Also notes R chronic RC tear. Pt hopes to return to performing yardwork and all activities with minimal pain. AGGR factors: All activities with L UE, sleeping. ALLEV factors: rest, ice machine. Pain Comments 0-4/10 Current Work Status Retired Precautions Treatment Precautions/Contraindications Sling use for 6 weeks post-op and no external rotation until 6 weeks post-op Therapy Limitations/Systems Review Not Limited Objective Functional Test Performed & Score Quick DASH: 80 Assessment Assessment/Impression Pt is doing well 2 weeks post- op with minimal pain and excellent precaution compliance. She responded very well to MT, passive ROM and table slides. Reviewed importance of avoiding shoulder ER, AROM and continued sling usage until 6 weeks post-op follow up. He will benefit from continued skilled therapy to address these limitations. Primary Functional Limitations All activities with L UE, sleeping Plan of Care Rehabilitation Potential Excellent Physical Therapy Goals Short-term goals to be completed in 4 weeks: 1. Pt will display improved L shoulder flex passive ROM >160 deg to progress to AROM stages of rehab. 2. Pt will report improved quality of sleep waking <2x per night due to L shoulder pain. Long-term goals to be completed in 12 weeks: 1. Pt will be independent and compliant with his HEP for mcc sx management. 2. Pt will display improved L shoulder flex AROM >155 deg to perform lifting and dressing activities. 3. Pt will display improved L shoulder flex, ABD, ER, IR, low and mid trap strength of > 4/5 each to lift objects into overhead cabinets and cooking duties. 4. Pt will report >75% improvement in quick DASH questionnaire to significantly improve dara to daily activities. Coordination/Communication With Referral Source Treatment Plan/Direct Interventions Joint Mobilization,Manual Therapy,Therapeutic Exercises Frequency/Duration 1-2x per week for at least 12- 16 visits, decreasing visit frequency as able. Patient Will Be Discharged From Therapy Completion of LTG(s),Skills Plateau,Independent w/HEP, Independently Progressing Evaluation Billing Untimed Code Treatment Minutes 22 Complexity Moderate Certification Information Initial Certification Date 12/22/23 Ending Certification Date 03/21/24 Provider Signature Required Yes Provider Signature Shows Agreement With POC & Medical Necessity Physician NPI Number Write NPI# Here Physician Comment/Change : Physician Signature & Date Requested Please Sign/Date Here
--- NOTE | 2024-04-02 12:57 | PT.OPDN ---
PT [facility] Daily Note PT [facility] Out[facility] Daily Note Start: 12/22/23 16:13 Freq: Status: Active Protocol: Document 04/02/24 12:37 THEO (Rec: 04/02/24 12:57 THEO [email or web address]) E-signed By Juan Haywood, DPT, MS PT OP Daily Progress Note Visit Information Note Type Recert/Progress Note Visit Number [id number] Insurance Authorized Visits - Physician Authorized Visits Eval and treat Insurance Information Recert Due Date 03/21/24 Insurance Name Medicare B Medical Diagnosis Left reverse total shoulder arthroplasty Treating Diagnosis L shoulder and biceps pain, decreased L shoulder PROM and AROM, and R UE weakness Subjective Preferred Name Bill Subjective Pt returns to PT following the holidays with elevated shoulder and overall body stiffness and soreness today with the cloudy, foggy weather . Despite this he continues to improve with resolution of pain with all activities with continued L UE weakness with lifting above shoulder height remaining limited. HEP going well with all exercises being helpful and he is able to do more with his L UE below chest height with reaching above shoulder height remaining challenging. No change in L 4th and 5th digit numbness and tingling with his MD informing him this may take a few more months to improve. Pt will continue I sx management with his HEP during his 2 month trip to [place], returning to PT prn based on his sxs. Pain Comments 0-3/10 Precautions Treatment Precautions/Contraindications Progress AAROM working toward AROM and strnegthening as able . Home Exercise Home Exercise Comments Access Code: [email or web address] URL: [email or web address] Date: 03/14/2024 Prepared by: William Haywood Exercises - Standing Shoulder Row with Anchored Resistance - 1 x daily - 3 sets - 12-15 reps - Shoulder extension with resistance - Neutral - 1 x daily - 3 sets - 10-15 reps - Shoulder External Rotation with Anchored Resistance - 1 x daily - 3 sets - 10 reps - Shoulder Flexion Wall Slide with Towel - 1-2 x daily - 3 sets - 8-10 reps - Wall Clock with Theraband - 1 x daily - 3 sets - 10 reps - Wall Push Up - 1 x daily - 3 sets - 8-10 reps - Supine Shoulder Flexion with Free Weight - 1 x daily - 3 sets - 10 reps - Seated Single Arm Bicep Curls with Rotation and Dumbbell - 1 x daily - 3 sets - 10 reps - Supine Chest Press with Dumbbells - 1 x daily - 3 sets - 10 reps Objective Other/Pertinent Objective L Shoulder passive ROM Flex: 170 deg ABD: 165 deg ER: 85 deg IR: R 50 deg L Shoulder active ROM Flex: 120 deg ABD: 108 deg ER: 85 deg IR: R 50 deg L UE strength Shoulder flex: 4-/5 Shoulder ABD: 4-/5 Biceps: 5/5 Triceps: 5/5 Mid trap: 3+/5 Rhomboids: 3+/5 Low trap: 2+/5 ER: 4-/5 IR: 4+/5 Patient Instructed in Risks/Benefits Yes Therapeutic Exercise Therapeutic Exercise Minutes (minutes) 45 Therapeutic Exercise: To Restore UBE fwd/bwd L shoulder passive Functional Status ROM for warmup x 4 min Levator scap, UT and scalene stretches Ulnar nerve flossing Standing shoulder shrugs progressed holding 15# kettlebell with 3 sec hold 3x10 Supine chest press progressed 4# with plus 3 x 12 Progressed arm circles and ABCs on wall at 90 degrees 2# wrist weight 3 x 10 B directions Progressed to rows and B shoulder ex 4.5 and 3.5 plates on CC 10 x 3 with good response. Provided black TB for home Biceps curls progressed 6# 18 x 3 slow ecc motion Agustin shoulder flex and scaption 20 x 3 Wall slide flex and scaption 2 # wrist weight with stretch 15 x 3 with fatigue Triceps push downs BTB 12 x 3 Progressed to supine flex 2# wrist weight 12 x 3 with fatigue Shoulder ER and IR GTB 10 x 3 cueing for proper mechanics Progressed to scaption lifts to shoulder height 1# wrist weight 3 sec pause 8 x 3 with fatigue Supine flex to 3# 14 x 2 with fatigue Shoulder IR stretching behind back with cane Treatment Minutes Timed Code Treatment Minutes 45 Total Treatment Time 45 Billing Units Therapeutic Exercise Units 3 Assessment/Impression Assessment/Impression Pt's shoulder continues to progress well overall at 15 weeks post op with gradual improvement in L UE NM activation and strength with again decreased shoulder girdle tightness today with again improved passive and active ROM. Pt continues to experience constant numbness and tingling in his L 4th and 5th digits with signs and symptoms consistent with possible cubital tunnel syndrome with pt displaying minimal improvement with MT, nerve flossing, strengthening or ROM exercises to date. Reviewed importance of proper sitting posture avoiding leaning on his L elbow since this may be contributing to his continued sxs. Pt will continue to monitor sxs and discuss this with his MD at his follow up visit later this month. L UE remains weak with pt fatiguing quickly with supine strengthening and gravity resisted AAROM strengthening progressions today. Re-issued pt's HEP which he will continue over the next 2 weeks. Pt will benefit from continued skilled PT services, progressing per MD instructions. [ End ] Plan of Care Physical Therapy Goals Short-term goals to be completed in 4 weeks: 1. Pt will display improved L shoulder flex passive ROM >160 deg to progress to AROM stages of rehab. 2. Pt will report improved quality of sleep waking <2x per night due to L shoulder pain. Long-term goals to be completed in 12 weeks: 1. Pt will be independent and compliant with his HEP for group home sx management. 2. Pt will display improved L shoulder flex AROM >155 deg to perform lifting and dressing activities. 3. Pt will display improved L shoulder flex, ABD, ER, IR, low and mid trap strength of > 4/5 each to lift objects into overhead cabinets and cooking duties. 4. Pt will report >75% improvement in quick DASH questionnaire to significantly improve dara to daily activities. Daily Plan of Care Continue per POC Daily Plan of Care Comments Progress shoulder passive ROM and active assist ROM, as able . Recertification Information Initial Certification Date 12/22/23 Recertification Start Date 03/21/24 Recertification Due Date 06/19/24 Reasons to Continue Skilled Therapy See assessment Rehabilitation Potential Good due to chronic nature of sxs, significant weakness and limited AROM for years prior to surgery Continued Plan of Care and Interventions Continued therapeutic exercise and manual therapy 1x every 1 -2 weeks for 6-8 additional visits as needed following pt' s upcoming 2 month trip to [place] Provider Signature Shows Agreement With POC & Medical Necessity Physician Comment/Change Comment or Changes Physician NPI Number #
== END 2024-07-31 23:59 | disposition home or self-care (01) ==
PROVIDERS: PCP Family Medicine; Visit Provider Orthopaedic Surgery
DX: M19.012 Primary osteoarthritis, left shoulder (principal); Z96.612 Presence of left artificial shoulder joint; S46.012A Strain of muscle(s) and tendon(s) of the rotator cuff of left shoulder, initial encounter; Z51.89 Encounter for other specified aftercare
CPT/HCPCS: 97110; 97140; 97162; 97165; 97535; X5282